=== PATIENT | male | born 1990 ===

== ENCOUNTER 2024-11-28 20:30 | Emergency (ER) | payer OTHER, SELFPAY ==
--- OUTSIDE RECORDS SUMMARY | 2024-11-28 20:33 | XMS_ITS | Encounter Summary ---
Author Organization [facility] Address [address] [place] [address] Care Team Providers Care Stonemason Name Role Phone Joleen Hernandez M.D. Primary Care Provider [phone] [phone] Reason for Visit * Reason Comments Med Refill Encounter Details Date Type Department Care Team (Late st Contact Info) Description 10/11/2024 Refill Department of Family Medicine, [facility], in [place], [place] [address] [address] Joleen Hernandez M.D. [address] [address] Med Refill Social History Tobacco Use Types Packs/Day Years Used Date Smoking Tobacco: Former Cigarettes 0 0 06/11/2014 - 06/11/2014 Passive Smoke Exposure: Current Smokeless Tobacco: Never Alcohol Use Standard Drinks/Week Comments No 0 (1 standard drink = 0.6 oz pur e alcohol) [facility] Utilities Answer Date Recorded In the past 12 months has e [employer], gas, oil, or water company threatened to shut off services in your home? No 10/29/2023 Humiliation, Afraid, Rape, and Kick questionnair e Answer Date Recorded Within the last year, have y ou been afraid of your partner or ex-partner? No 04/12/2021 Within the last year, have y ou been humiliated or emotionally abused in other ways by your partner or ex-partner? No Within the last year, have y ou been kicked, hit, slapped, or otherwise physically hurt by your partner or ex-partner? No 04/12/2021 Within the last year, have y ou been raped or forced to have any kind of sexual activity by your partner or ex-partner? No 04/12/2021 Hunger Vital Sign Answer Date Recorded Within the past 12 months, y ou worried that your food would run out before you got the money to buy more. Never true 10/29/19 Within the past 12 months, t he food you bought just didn't last and you didn't have money to get more. Never true 10/29/2023 PRAPARE - Transportation Answer Date Re corded In the past 12 months, has l ack of transportation kept you from medical appointments or from getting medications? No 10/10 In the past 12 months, has l ack of transportation kept you from meetings, work, or from getting things needed for daily living? No 10/29/2023 Depression Answer Date Recor ded PHQ-9 Total Score (max 27) 0 08/14 Housing Stability Answer Date Recorded What is your living situation today? [facility] 10/29/2023 Education Answer Date Recorded What is the highest level of school you have completed or the highest degree you have received? GED or equivalent Sex and Gender Information Value Date Recorded Sex Assigned at Male 12/03/2019 4:13 PM CDT Legal Sex Male 2:31 PM HORTICULTURAL SPECIALTY GROWER INSIDE Gender Identity Male 12/03/2019 4:13 PM CDT Sexual Orientation Straight 12/03/2019 4: 13 PM CDT documented as of this encounter Plan of Treatment Not on file documented as of this encounter Visit Diagnoses Diagnosis Radiculopathy Lumbar Pain Low Back Mechanical documented in this encounter Additional Health Concerns Assessment Noted Time PHQ-9 Depression Total Score: 0 08/15/19 5:02 PM HORTICULTURAL SPECIALTY GROWER INSIDE documented as of this encounter Care Teams Stonemason Relationship Specialty Start Date End Date Joleen Hernandez M.D. [address] [place] [phone] PCP - General Family Medicine 10/05/17 documented as of this encounter
--- OUTSIDE RECORDS SUMMARY | 2024-11-28 20:33 | XMS_ITS | Encounter Summary ---
Author Organization [facility] Address [address] [place] [address] Care Team Providers Care Bicycle Technician Name Role Phone Joleen Hernandez M.D. Primary Care Provider [phone] Reason for Visit * Reason Onset Date Comments PandaDoc Form 10/29/2024 Medical Opinion Encounter Details Date Type Department Care Team (Late st Contact Info) Description 10/29/2024 Clinical Communication Department of Family Medicine, [facility], in [place], [place] [address] [place] [phone] Joleen Hernandez M.D. [address], [place] [address] PandaDoc Form (Medical Opinion ) Social History Tobacco Use Types Packs/Day Years Used Date Smoking Tobacco: Former Cigarettes 0 0 06/11/2014 - 06/11/2014 Passive Smoke Exposure: Current Smokeless Tobacco: Never Alcohol Use Standard Drinks/Week Comments No 0 (1 standard drink = 0.6 oz pur e alcohol) [facility] Utilities Answer Date Recorded In the past 12 months has e [employer], gas, oil, or water [employer] threatened to shut off services in your [...] your living situation today? I have a [facility] place to live 10/29/2023 Education Answer Date Recorded What is the highest level of school you have completed or the highest degree you have received? GED or equivalent Sex and Gender Information Value Date Recorded Sex Assigned at Male 12/03/2019 4:13 PM CDT Legal Sex Male 2:31 PM MILL LABORER Gender Identity Male 12/03/2019 4:13 PM CDT Sexual Orientation Straight 12/03/2019 4: 13 PM CDT documented as of this encounter Miscellaneous Notes * Telephone Encounter - Terra Camara - 10/31/2024 7:[address] Hernandez states patient needs appointment. Form routed back to patient. * Telephone Encounter - Charlene Kaur - 10/29/2024 2:25 PM CDT Medical Opinion form received by [facility] Forms Team on 10/29/2024 from [facility]. Please allow 7-10 business days for form completion documented in this encounter Plan of Treatment Not on file documented as of this encounter Visit Diagnoses Not on filedocumented in this encounter Additional Health Concerns Assessment Noted Time PHQ-9 Depression Total Score: 0 08/15/19 24 5:02 PM MILL LABORER documented as of this encounter Care Teams Bicycle Technician Relationship Specialty Start Date End Date Joleen Hernandez M.D. [address] [place] [address] PCP - General Family Medicine 10/05/17 documented as of this encounter
--- OUTSIDE RECORDS SUMMARY | 2024-11-28 20:33 | XMS_ITS | Clinical Summary ---
Author Organization [facility] Address [address] [place] [address] Care Team Providers Care Unarmed Security Guard Name Role Phone Joleen Hernandez M.D. Primary Care Provider [phone] [phone] Source Comments Patient records contain information from all sites at [facility]. For routine questions regarding patient records, call [phone] during business hours, M-F 8:00 AM - 5:00 PM Central Time. Record requests for emergency care only can be directed to [phone] at any time.[facility] Allergies No known active allergies Medications * This document contains information received from the source organization and may not represent a complete record from that organization. fluticasone propionate (FLOVENT HFA) 44 mcg/actuation inhalerIndicati ons:Asthma Moderate Persistent With Acute Exacerbation With History Of Tobacco Use (HCC),Gastroeso phageal Reflux Disease Without Esophagitis Inhale 2 puffs 2 (two) times a day. Rinse mouth with water after use to reduce aftertaste and incidence of candidiasis. Do not swallow. 10.6 g 11 023 Active naproxen (EC-NAPROSYN) 500 mg EC tabletIndicatio ns:Radiculopath y Lumbar,Pain Low Back Mechanical Take 1 tablet (500 mg total) by mouth 2 (two) times a day with meals. 60 tablet 1 024 Active QUEtiapine (SEROquel) 200 mg tabletIndicatio ns:Anxiety Generalized Disorder Take 1 tablet (200 mg total) by mouth 2 (two) times a day. 60 tablet 2 024 Active atorvastatin (LIPITOR) 20 mg tablet Take 1 tablet (20 mg total) by mouth daily. 90 tablet 3 024 Active losartan (Cozaar) 50 mg tabletIndicatio ns:Hypertension Essential Primary take one tablet by mouth one time daily 90 tablet 3 024 Active albuterol (Ventolin HFA) 90 mcg/actuation inhalerIndicati ons:Asthma Moderate Persistent With Acute Exacerbation With History Of Tobacco Use (HCC),Gastroeso phageal Reflux Disease Without Esophagitis Inhale 2 puffs every 4 (four) hours as needed for wheezing or shortness of breath. 18 g 2 024 Active buprenorphine-n aloxone (Suboxone) 8-[address] mg [address] film Place 0.5 Film (4 mg of buprenorphine total) under the tongue 3 (three) times a day. Please schedule appointment. 90 each 025 Active gabapentin (Neurontin) 800 mg tabletIndicatio ns:Radiculopath y Lumbar,Pain Low Back Mechanical Take 1.5 tablets (1,200 mg total) by mouth 3 (three) times a day. Needs in-person clinic visit as recommended in July tablet 1 025 Active pantoprazole (Protonix) 40 mg EC tabletIndicatio ns:Gastroesopha geal Reflux Disease Without Esophagitis TAKE ONE TABLET BY MOUTH TWICE DAILY BEFORE BREAKFAST and dinner. 90 tablet 3 025 Active cyclobenzaprine (FLEXERIL) 10 mg tablet Take 1 tablet (10 mg total) by mouth 3 (three) times a day as needed for muscle spasms for up to 5 days. 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 Med Refill 10/29/2024 Clinical Communication Department of [facility], [place], [facility], [address] [address] Joleen Hernandez M.D. PandaDo Form (Medical Opinion ) 10/11/2024 Refill Department of [facility], [place], [facility], [place], [place] [address] [place] [phone] Joleen Hernandez M.D. Med Refill 10/01/2024 1:14 PM CDT - 10/01/2024 11:59 PM CDT Emergency [facility] [address] [place] [phone] Discharge Disposition: Home or Self Care from Last 3 Months Immunizations Immunization Administration Dates Next Due DTP 07/14/1993, 2,04/24/1991,1990,1988 Hib (PRP-T) (ACTHIB, HIBERIX) 04/24/1991 MMR 12/19/1990 OPV 07/14/1993, 1,12/19/1990,1988 Td (Adult), adsorbed 11/11/2011 Tdap 11/20/2022,10/06/2014 influenza vaccine quad (FLUZONE/FLUARIX) (6 months and older)(PF) 04/25/2018,07/17/2017 Family History Medical History Relation Name Comments ADD Father Oneal Hyperlipidemia Father Oneal Hypertension Father Oneal Anxiety disorder Mother gabrielle Bipolar disorder Mother gabrielle Depression Mother gabrielle Lung cancer Mother gabrielle Pancreatic cancer Mother gabrielle Relation Name Status Comments Father Oneal Mother gabrielle Social History Tobacco Use Types Packs/Day Years Used Date Smoking Tobacco: Former Cigarettes 0 0 06/11/2014 - 06/11/2014 Passive Smoke Exposure: Current Smokeless Tobacco: Never Tobacco Cessation:Counseling Given: Not Answered Alcohol Use Standard Drinks/Week Comments No 0 (1 standard drink = 0.6 oz pur e alcohol) [facility] [employer] Gamesities Answer Date Recorded In the past 12 months has e [employer], gas, oil, or water [employer] threatened to shut off services in your [...] money to buy more. Never true 10/29/19 24 Within the past 12 months, t he [...] your living situation today? I have a [facility] place to live 10/29/2023 Education Answer Date Recorded What is the highest level of school you have completed or the highest degree you have received? GED or equivalent Sex and Gender Information Value Date Recorded Sex Assigned at Male 12/03/2019 4:13 PM CDT Legal Sex Male 2:31 PM NETWORK CABLER Gender Identity Male 12/03/2019 4:13 PM CDT Sexual Orientation Straight 12/03/2019 4: 13 PM CDT Last Filed Vital Signs Vital Sign Reading Time Taken Comments Blood Pressure 152/91 11/19/2023 2:46 PM CDT Pulse 79 11/19/2023 2:46 PM CDT Temperature 36.2 C (97.2 F) 09/21/2023 10:47 AM CDT Respiratory Rate 20 08/23/2023 7:30 PM CDT Oxygen Saturation 96% 08/23/2023 7:35 PM CDT Inhaled Oxygen Concentration - - Weight 94.3 kg (207 lb 14.3 oz) 11/19/2023 2:46 PM CDT Height 178.5 cm (5' 10.28) 07/26/2022 2:[address] Body Mass Index 29.6 07/26/2022 2:00 PM NETWORK CABLER Plan of Treatment Health Maintenance Due Date Last Done Comments HIV Screening 1988 Hepatitis C Screening 1988 Hepatitis B Vaccines (1 of 3 - 19+ 3-dose series) 2007 Pneumococcal vaccine (0-49 years) (1 of 2 - PCV) 2007 Asthma Action Plan 09/21/2023 COVID-19 Vaccine ( - 2023- season) 2024 Influenza Vaccine (#1) 2024 04/25/2018, 2017 Depression Screening (Annual PHQ-2) 06/11/2024 Creatinine Level (Kidney Function Test) 10/21/2024 10/22/2023, 10/07/2022, 09/25/2021, Additional history exists Glucose Test for Med Monitoring 10/21/2024 10/22/2023, 10/07/2022, 09/25/2021, Additional history exists Lipid (Cholesterol) Screening 10/21/2024 10/22/2023 Potassium Level 10/21/2024 10/22/2023, 09/10, 09/25/2021, Additional history exists Sodium Level 10/21/2024 10/22/2023, 09/10, 09/25/2021, Additional history exists Asthma Control Test Questionnaire 10/28/2024 10/29/2023 Asthma Management/Exacerbation Questionnaire (AMQ/AEQ) 10/28/2024 10/29/2023, 12/25/2022 DTaP,Tdap,and Td Vaccines (8 - Td or Tdap) 11/20/2032 11/20/2022, 10/06/2014, 11/11/2011, Additional history exists IPV Vaccines Completed 07/14/1993, 04/11, 12/19/1990, Additional history exists HPV Vaccines Aged Out No longer eligi ble based on patient's age to complete this topic Procedures Procedure Name Priority Date/Time Associated Diagnosis Comments LIPID PANEL, S Routine 10/22/2023 9:50 AM CDT Screening Lipid COMPREHENSIVE METABOLIC PANEL, S/P Routine 10/22/2023 9:50 AM CDT Pain Right Upper Quadrant from Last 3 Months or Most Recently Relevant to Health Maintenance Results * (ABNORMAL) Lipid Panel (10/22/2023 9:50 AM CDT) Pathologist [facility] Triglycerides 217(H) mg/dL 10/22/2023 1:54 PM CDT [facility] Comment: ----REFERENCE VALUE---- Normal: <150 mg/dL Borderline High: 150-199 mg/dL High: 200-499 mg/dL Very High: > or =500 mg/dL Cholesterol, Total 323(H) mg/dL 2023 1:54 PM CDT [facility] Comment: ----REFERENCE VALUE---- Desirable: < 200 mg/dL Borderline High: 200 - 239 mg/dL High: > or = 240 mg/dL Cholesterol, LDL, Calculated 251(H) mg/dL 10/22/2023 1:54 PM CDT [facility] Comment: The markedly elevated LDL level is suggestive of a genetic condition such as familial hypercholesterolemia (FH) or familial defective apolipoprotein B-100 (FDB). Molecular genetic testing for FH and FDB is available through [facility]. ----REFERENCE VALUE---- Desirable: <100 mg/dL Above Desirable: 100-129 mg/dL Borderline High: 130-159 mg/dL High: 160-189 mg/dL Very High: >=190 mg/dL ----ADDITIONAL INFORMATION---- LDL cholesterol calculated using the Obrien/NIH equation. Cholesterol, HDL 27(L) >=40 mg/dL 10/22/19 1:54 PM CDT [facility] Cholesterol, Non-HDL, Calculated 296(H) mg/dL 10/22/2023 1:54 PM CDT [facility] Comment: ----REFERENCE VALUE---- Desirable: <130 mg/dL Above Desirable: 130-159 mg/dL Borderline High: 160-189 mg/dL High: 190-219 mg/dL Very High: > or =220 mg/dL Fasting (8 HR or more) Yes 10/22/2023 1:16 PM CDT [facility] Blood (Blood, Venous) 10/22/2023 9:50 AM CDT 10/22/2023 1:16 PM CDT us Joleen Hernandez M.D. LAB BLOOD ADD-ON Final Re sult [facility] [address] [place] [address], [facility] in [place] [address] [place] [address] * (ABNORMAL) Comprehensive Metabolic Panel (10/22/2023 9:50 AM CDT) Potassium, P 4.5 3.6 - 5.2 mmol/L 10/22/2023 1:54 PM CDT [facility] Sodium, P 141 135 - 145 mmol/L 10/22/2023 1:54 PM CDT [facility] Chloride, P 102 98 - 107 mmol/L 10/22/2023 1:54 PM CDT [facility] Bicarbonate, P 31(H) 22 - 29 mmol/L 10/22/2023 1:54 PM CDT [facility] Anion Gap, P 8 7 - 15 10/22/2023 1:54 PM CDT [facility] BUN (Blood Urea Nitrogen), P 12 8 - 24 mg/dL 10/22/2023 1:54 PM CDT [facility] Creatinine 1.48(H) 0.74 - 1.35 mg/dL 10/22/2023 1:54 PM CDT [facility] Estimated GFR (eGFR) 63 >=60 mL/min/BS A 10/22/2023 1:54 PM CDT [facility] Comment: Estimated GFR calculated using the 2020 CKD_EPI creatinine equation. Calcium, Total, P 9.4 8.6 - 10.0 mg/dL 10/22/2023 1:54 PM CDT [facility] Glucose, P 87 70 - 140 mg/dL 10/22/2023 1:54 PM CDT [facility] Protein, Total, P 7.6 6.3 - 7.9 g/dL 10/22/2023 1:54 PM CDT [facility] Albumin, P 4.7 3.5 - 5.0 g/dL 10/22/2023 1:54 PM CDT [facility] Aspartate Aminotransferase (AST), P 23 8 - 48 U/L 10/22/2023 1:54 PM CDT [facility] Alkaline Phosphatase, P 49 40 - 129 U/L 10/22/2023 1:54 PM CDT [facility] Alanine Aminotransferase (ALT), P 33 7 - 55 U/L 10/22/2023 1:54 PM CDT [facility] Bilirubin, Total, P 0.5 0.0 - 1.2 mg/dL 10/22/2023 1:54 PM CDT [facility] Blood (Blood, Venous) 10/22/2023 9:50 AM CDT 10/22/2023 1:16 PM CDT us Joleen Hernandez M.D. LAB BLOOD ADD-ON Final Re sult [facility] [address] [place] [address], [place] [facility] in [place] [address] [place] [address] from Last 3 Months or Most Recently Relevant to Health Maintenance Care Teams Unarmed Security Guard Relationship Specialty Start Date End Date Joleen Hernandez M.D. [address] [place] [phone] PCP - General Family Medicine 10/05/17
--- OUTSIDE RECORDS SUMMARY | 2024-11-28 20:33 | XMS_ITS | Encounter Summary ---
Author Organization [facility] Address [address] [place] [address] Care Team Providers Care Garnett Machine Operator Helper Name Role Phone Joleen Hernandez M.D. Primary Care Provider [phone] [phone] Reason for Visit * Reason Comments Med Refill Encounter Details Date Type Department Care Team (Late st Contact Info) Description 11/07/2024 Refill Department of Family Medicine, [facility], in [place], [place] [address] [phone] Joleen Hernandez M.D. [address] [place] [phone] Med Refill Social History Tobacco Use Types Packs/Day Years Used Date Smoking Tobacco: Former Cigarettes 0 0 06/11/2014 - 06/11/2014 Passive Smoke Exposure: Current Smokeless Tobacco: Never Alcohol Use Standard Drinks/Week Comments No 0 (1 standard drink = 0.6 oz pur e alcohol) [facility] Utilities Answer Date Recorded In the past 12 months has e [employer], gas, oil, or water company threatened to [...] your living situation today? I have a [facility] place to live 10/29/2023 Education Answer Date Recorded What is the highest level of school you have completed or the highest degree you have received? GED or equivalent Sex and Gender Information Value Date Recorded Sex Assigned at Male 12/03/2019 4:13 PM CDT Legal Sex Male 2:31 PM HOGSHEAD INSPECTOR Gender Identity Male 12/03/2019 4:13 PM CDT Sexual Orientation Straight 12/03/2019 4: 13 PM CDT documented as of this encounter Plan of Treatment Not on file documented as of this encounter Visit Diagnoses Diagnosis Gastroesophageal Reflux Disease Without Esophagitis documented in this encounter Additional Health Concerns Assessment Noted Time PHQ-9 Depression Total Score: 0 08/15/19 5:02 PM HOGSHEAD INSPECTOR documented as of this encounter Care Teams Garnett Machine Operator Helper Relationship Specialty Start Date End Date Joleen Hernandez M.D. [address] [place] [phone] PCP - General Family Medicine 10/05/17 documented as of this encounter
[2024-11-28 21:01] VITALS: BP 147/82; PULSE 96; RESP 18; TEMP 37.4; O2SAT 96; BMI 28.0
[2024-11-28 21:41] LABS: PCR FLU A Negative PCR FLU A (Negative); PCR FLU B Negative PCR FLU B (Negative); SARS PCR* Negative SARS-CoV-2 (Negative)
--- NOTE | 2024-11-28 21:42 | ED.GENADULT ---
HPI - General Adult General Chief complaint: Shortness of Breath/Dyspnea Stated complaint: Shortness of breath, nausea Time Seen by Provider: 11/28/24 21:11 History of Present Illness HPI narrative: pt resents with cough, sinus congestion, and chest congestion since sunday. family is not sick. pt denies fevers, no ibu /tyl. did take mucinex. states he has hx of pnx multiple times. 34-year-old man presenting to emergency depart with concern of shortness of breath and cough. Some sinus congestion without pain. 4 days of illness now. Sounds like he gets jags of coughing. Feels a rattle in his chest against off. Does not had a fever that he knows of. He has treated with Mucinex. Related Data Home Medications ?Medication ?Instructions ?Recorded ?Confirmed albuterol sulfate 90 mcg/actuation inhalation 09/05/23 09/05/23 aerosol inhaler (Ventolin HFA) famotidine 40 mg tablet 40 mg PO BID 09/05/23 11/28/24 fluticasone propionate 44 2 puff inhalation BID 09/05/23 09/05/23 mcg/actuation HFA aerosol inhaler gabapentin 800 mg tablet 3,600 mg PO 09/05/23 09/05/23 quetiapine 100 mg tablet 100 mg PO QPM 09/05/23 11/28/24 buprenorphine 8 mg-naloxone 2 mg 1 film sublingual DAILY 11/28/24 11/28/24 sublingual film Allergies Allergy/AdvReac Type Severity Reaction Status Date / Time No Known Drug Allergies Allergy Verified 11/28/24 21:03 Review of Systems Status of ROS: Reports: 6 or more systems reviewed and unremarkable except as noted in History and below [facility] Social History Smoking Status: Never smoker Second hand tobacco smoke exposure: No How often do you have a drink containing alcohol: never AUDIT-C Alcohol total score: 0 Non-prescribed substance use: denies use Exam Narrative: Exam Narrative: Pleasant. NAD but looks like feels a little uncomfortable. Heavily bearded. Tattoos. Wiping his brow times. Oropharynx is unremarkable. The lungs with some inspiratory rhonchi I thought in the left mid lung. Cleared with further inspiratory efforts. Cough with deeper effort. Heart with elevated rate and regular rhythm. Well-perfused peripherally. Does sound a little congested nasopharynx but without pain Const: Vital Signs, click to edit/add: Vital Signs - 24 hr 11/28/24 21:01 11/28/24 23:01 11/28/24 23:01 Temperature 99.4 F 99.4 F 99.4 F Pulse Rate [Pulse Oximeter] 96 85 85 Respiratory Rate 18 18 18 Blood Pressure [Ri ght Upper Arm] 147/82 H 135/74 135/74 Pulse Oximetry 96 96 Oxygen Delivery Me thod Room Air Room Air Documenting provider has reviewed patient's vital signs: yes Course Vital Signs Vital signs: Initial Vital Signs Respiratory Effort Normal, Spontaneous, Non-Labored 11/28/24 20:55 Respiratory Depth Normal 11/28/24 20:55 Respiratory Pattern Normal 11/28/24 20:55 Vital Signs Temperature 99.4 F 11/28/24 21:01 Pulse Rate 96 11/28/24 21:01 Respiratory Rate 18 11/28/24 21:01 Blood Pressure 147/82 H 11/28/24 21:01 Pulse Oximetry 96 11/28/24 21:01 Oxygen Delivery Method Room Air 11/28/24 21:01 Temperature 99.4 F 11/28/24 23:01 Pulse Rate 85 11/28/24 23:01 Respiratory Rate 18 11/28/24 23:01 Blood Pressure 135/74 11/28/24 23:01 Pulse Oximetry 96 11/28/24 23:01 Oxygen Delivery Method Room Air 11/28/24 23:01 Medical Decision Making MDM Narrative Medical decision making narrative: Triple swab has been collected upon triage in negative by the time I am seeing this patient. This could be cough somewhat related to postnasal drip, bronchitis some degree of pleuritis, pneumonia. Will be doing two-view chest x-ray and treating accordingly Chest x-ray independently reviewed by me looks to show perihilar fullness suggestive more of a viral process. Managed to sleep during time in emergency department. I do think has a combination of postnasal drip related cough or maybe even laryngospasm in addition to pleuritic cough Radiology over-read below Final Report: Indication: Cough, ongoing one-week Technique: Two views of the chest Comparison: None Findings/Impression: No organized consolidation appreciated. Mild prominence of central vascular and peripheral interstitial markings, nonspecific but could be seen with atypical/viral pneumonia or high volume status. Dictated by Jorgito Bonilla MD @ 11/28/2024 11:02:01 PM See patient discharge plan for further discussion I will call you if Radiology sees something other in your chest x-ray that requires treatment. Would however recommend sleeping in the mist of a cool mist humidifier. Menthol vapors might be helpful. Sucking on ice chips can help. Pseudoephedrine might be helpful for your cough due to drying and decongestion and then decreasing postnasal drip related cough. I like the 12 hour formulation. Can purchase this [id number] with id. Prescribing course of prednisone as discussed from [facility]. Otherwise guaifenesin with codeine if needed. Medical Records Medical records reviewed: Yes I reviewed the patient's medical records Lab Data Lab results reviewed: Yes I reviewed the patient's lab results Labs: Lab Results 11/28/24 Range/Units 21:00 SARS-CoV-2 (PCR) Negative SARS-CoV-2 (Negative) Influenza Type A (PCR) Negative PCR FLU A (Negative) Influenza Type B (PCR) Negative PCR FLU B (Negative) Discharge Plan Discharge Clinical Impression: Bronchitis, URI (upper respiratory infection) Patient Disposition: Home w/ Parent or Adult Condition: Improved Additional Instructions: I will call you if Radiology sees something other in your chest x-ray that requires treatment. Would however recommend sleeping in the mist of a cool mist humidifier. Menthol vapors might be helpful. Sucking on ice chips can help. Pseudoephedrine might be helpful for your cough due to drying and decongestion and then decreasing postnasal drip related cough. I like the 12 hour formulation. Can purchase this [id number] with id. Prescribing course of prednisone as discussed from [facility]. Otherwise guaifenesin with codeine if needed. Prescriptions: No Action gabapentin 800 mg tablet 3,600 mg PO quetiapine 100 mg tablet 100 mg PO QPM famotidine 40 mg tablet 40 mg PO BID albuterol sulfate [Ventolin HFA] 90 mcg/actuation HFA aerosol inhaler inhalation fluticasone propionate 44 mcg/actuation HFA aerosol inhaler 2 puff inhalation BID buprenorphine-naloxone 8-2 mg film 1 film sublingual DAILY Follow Up/Referrals: Provider,Not a Local [Primary Care Provider, Family Practice] Stand Alone Forms: [employer] Info Instructions
--- NOTE | 2024-11-28 21:49 | CRLHL7_ITS ---
For Patients: As a result of the Century Cures Act, medical imaging exams and procedure reports are released immediately into your electronic medical record. You may view this report before your referring provider. If you have questions, please contact your health care provider. Indication: Cough, ongoing one-week Technique: Two views of the chest Comparison: None Findings/Impression: No organized consolidation appreciated. Mild prominence of central vascular and peripheral interstitial markings, nonspecific but could be seen with atypical/viral pneumonia or high volume status. Dictated by Jorgito Bonilla MD @ 11/28/2024 11:02:01 PM (Electronically Signed)
--- OUTSIDE RECORDS SUMMARY | 2024-11-28 22:05 | XMS_ITS | Clinical Summary ---
Author Organization [facility] Address [address] [place] [address] Care Team Providers Care Package Reinspector Name Role Phone Joleen Hernandez MD Primary Care Prov ider Allergies No known active allergies Medications gabapentin (NEURONTIN) 400 mg capsule Take 800 mg by mouth 3 times daily. Active DULoxetine (CYMBALTA) 60 mg Delayed-release capsuleIndications: chronic musculoskeletal pain Take 60 mg by mouth once daily. Indications: chronic muscle or bone pain Active tiZANidine (ZANAFLEX) 4 mg tabletIndications:A cute exacerbation of chronic low back pain Take 1 tablet by mouth every 6 hours if needed for Muscle Spasm. 15 tablet 11/19/19 20 Active oxyCODONE-acetamino phen, 5-325 mg, (PERCOCET) 5-325 mg per tabletIndications:I njury of back, initial encounter,Foot injury, left, initial encounter,Foot injury, right, initial encounter Take 1 tablet by mouth every 4 hours if needed for Pain Max acetaminophen dose: 4000mg in 24 hrs. 15 tablet 01/12/20 20 Active dextroamphetamine-a mphetamine (ADDERALL) 20 mg tablet Take 20 mg by mouth 2 times daily 01/31/20 20 Active oxyCODONE (ROXICODONE) 5 mg immediate release tabletIndications:B ack pain, unspecified back location, unspecified back pain laterality, unspecified chronicity Take 1 tablet by mouth every 6 hours if needed for Pain 10 tablet 05/31/20 20 Active methocarbamoL (ROBAXIN) 500 mg tabletIndications:B ack pain, unspecified back location, unspecified back pain laterality, unspecified chronicity Take 1 tablet by mouth every 6 hours if needed for Other (Specify). 12 tablet 05/31/20 20 Active naproxen (NAPROSYN) 500 mg tabletIndications:A cute exacerbation of chronic low back pain Take 1 Tablet (500 mg) by mouth 2 times daily. 30 Tablet 01/18/20 21 Active oxyCODONE (ROXICODONE) 5 mg immediate release tabletIndications:A cute exacerbation of chronic low back pain Take 1 Tablet (5 mg) by mouth every 4 hours if needed for Pain. 4 Tablet 01/18/20 21 Active buprenorphine-nalox one (Suboxone) 8-2 mg sublingual filmIndications:Opi oid withdrawal (HC),Back pain, unspecified back location, unspecified back pain laterality, unspecified chronicity Place 1 Film under the tongue once daily. Place film under the tongue until completely dissolved. Do not chew or swallow film. 30 Each 10/02/19 25 Active ondansetron 4 mg disintegrating tabletIndications:O pioid withdrawal (HC) Place 1 Tablet (4 mg) on the tongue every 6 hours if needed for Nausea/Vomiting. 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 Personal history of nicotine dependence 07/20/19 16 Encounters Date Type Department Care Team Description 10/01/2024 3:24 PM CDT - 10/01/2024 3:58 PM CDT Emergency [address] [address] Lilly Loya MD Opioid withdrawal (HC) (Primary Dx); Back pain, unspecified back location, unspecified back pain laterality, unspecified chronicity Discharge Disposition: Home Self Care 10/01/2024 Travel from Last 3 Months Immunizations Immunization Administration Dates Next Due DTP 07/14/1993, 2,04/24/1991,12/19/1990,08/25 HIB PRP-T (ActHIB,[employer]) 04/24/1991 Influenza, IIV4 04/25/2018,07/17/2017 MMR 12/19/1990 Oral Polio Vaccine 07/14/1993,04/24/1991, 991,1988 Td (Age >=7 Years) 11/11/2011 Tdap 10/06/2014 Family History Medical History Relation Name Comments GI Disease Mother Chronic GERD. Relation Name Status Comments Mother Alive Social History Tobacco Use Types Packs/Day Years Used Date Smoking Tobacco: Former Smokeless Tobacco: Never Tobacco Cessation:Counseling Given: Yes Comments:Patient quit smoking in 08/2012. Alcohol Use Standard Drinks/Week Comments No 0 (1 standard drink = 0.6 oz pur e alcohol) Interpersonal Safety Answer Date Record ed Are you being hit, kicked, p ushed or yelled at (see row info)? 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 Gender Identity Not on file Sexual Orientation Not on file Obstetrics History Last Filed Vital Signs Vital Sign Reading Time Taken Comments Blood Pressure 129/92 10/01/2024 1:31 PM CDT Pulse 115 10/01/2024 1:31 PM CDT Temperature 36.8 C (98.2 F) 10/01/2024 1:31 PM CDT Respiratory Rate 19 10/01/2024 1:31 PM CDT Oxygen Saturation 98% 10/01/2024 1:31 PM CDT Inhaled Oxygen Concentration - - Weight 87.7 kg (193 lb 6.4 oz) 10/01/2024 1:25 P M CDT Height 177.8 cm (5' 10) 10/01/2024 1:25 PM CDT Body Mass Index 27.75 10/01/2024 1:25 PM CDT Plan of Treatment Health Maintenance Due Date Last Done Comments Depression screening for age 12+ 2000 BMI (ht and wt on same day) for age 18+ 2006 Hepatitis C screening for ag e 18-79 2006 Hepatitis B series for 19+ ( 1 of 3 - 19+ 3-dose series) 2007 Lipids for age 35-44 2023 COVID-19 vaccine series (2023- season) 2024 Tetanus booster 10/06/2024 10/06/2014, 11/11/2011 Influenza Vaccine (Season Ended) 2025 04/25/2018, 07/17/2017 Tdap Completed 10/06/2014 HIV for age 15-65 Completed 12/09/2018 Pneumococcal series for age 6-49 Aged Out No longer eligible b ased on patient's age to complete this topic Procedures Procedure Name Priority Date/Time Associated Diagnosis Comments ANTI HIV 1/2 STAT 12/09/2018 10:55 PM CDT from Last 3 Months or Most Recently Relevant to Health Maintenance Results * ANTI HIV 1/2 (12/09/2018 10:55 PM CDT) HIV-1/HIV-2 ANTIBODY Non-Reacti ve Non-Reacti ve 12/11/2018 4:52 AM CDT [facility] Comment:HIV-1 p24 and HIV-1/ HIV-2 Ab not detected. Blood BLOOD SPECIMEN / Unknown Venipuncture / Unknown 12/09/2018 10:55 PM CDT 12/09/2018 10:57 PM CDT us Reji Castillo MD SEND OUTS Final Res ult [facility] [address] [place] [address], [place] from Last 3 Months or Most Recently Relevant to Health Maintenance Care Teams Package Reinspector Relationship Specialty Start Date End Date Joleen Hernandez MD [address] [place] [address] PCP - General Family Practice 10/06/17
[2024-11-28 23:01] VITALS: BP 135/74; PULSE 85; RESP 18; TEMP 37.4; O2SAT 96
== END 2024-11-28 23:02 | disposition home or self-care (01) ==
PROVIDERS: Emergency Provider Family Medicine
DX: J40 Bronchitis, not specified as acute or chronic (principal); J06.9 Acute upper respiratory infection, unspecified; R06.02 Shortness of breath; R05.9 Cough, unspecified
CPT/HCPCS: 71046; 87631; 99283; 99284

== ENCOUNTER 2024-12-04 03:36 | Emergency (ER) | payer OTHER, SELFPAY ==
--- OUTSIDE RECORDS SUMMARY | 2024-12-04 03:39 | XMS_ITS | Encounter Summary ---
Author Organization [facility] Address [address] [place] [address] Care Team Providers Care Professional Soccer Player Name Role Phone Joleen Hernandez M.D. Primary Care Provider [phone] Reason for Visit * Reason Onset Date Comments PandaDoc Form 10/29/2024 Medical Opinion Encounter Details Date Type Department Care Team (Late st Contact Info) Description 10/29/2024 Clinical Communication Department of Family Medicine, [facility], in [place], [place] [address] [place] [phone] Joleen Hernandez M.D. [address] [address] PandaDoc Form (Medical Opinion ) Social History Tobacco Use Types Packs/Day Years Used Date Smoking Tobacco: Former Cigarettes 0 0 06/11/2014 - 06/11/2014 Passive Smoke Exposure: Current Smokeless Tobacco: Never Alcohol Use Standard Drinks/Week Comments No 0 (1 standard drink = 0.6 oz pur e alcohol) [facility] Utilities Answer Date Recorded In the past 12 months has e [employer], gas, oil, or water [employer] threatened to shut off services in your [...] your living situation today? I have a [facility] place to live 10/29/2023 Education Answer Date Recorded What is the highest level of school you have completed or the highest degree you have received? GED or equivalent Sex and Gender Information Value Date Recorded Sex Assigned at Male 12/03/2019 4:13 PM CDT Legal Sex Male 2:31 PM CABANA ATTENDANT Gender Identity Male 12/03/2019 4:13 PM CDT Sexual Orientation Straight 12/03/2019 4: 13 PM CDT documented as of this encounter Miscellaneous Notes * Telephone Encounter - Terra Camara - 10/31/2024 7:[address] Hernandez states patient needs appointment. Form routed back to patient. * Telephone Encounter - Charlene Kaur - 10/29/2024 2:25 PM CDT Medical Opinion form received by [facility] Forms Team on 10/29/2024 from [facility]. Please allow 7-10 business days for form completion documented in this encounter Plan of Treatment Not on file documented as of this encounter Visit Diagnoses Not on filedocumented in this encounter Additional Health Concerns Assessment Noted Time PHQ-9 Depression Total Score: 0 08/15/19 24 5:02 PM CABANA ATTENDANT documented as of this encounter Care Teams Professional Soccer Player Relationship Specialty Start Date End Date Joleen Hernandez M.D. [address] [place] [address] PCP - General Family Medicine 10/05/17 documented as of this encounter
--- OUTSIDE RECORDS SUMMARY | 2024-12-04 03:39 | XMS_ITS | Encounter Summary ---
Author Organization [facility] Address [address] [place] [address] Care Team Providers Care Panel Cutter Name Role Phone Joleen Hernandez M.D. Primary Care Provider [phone] Reason for Visit * Reason Comments Med Refill Encounter Details Date Type Department Care Team (Late st Contact Info) Description 11/07/2024 Refill Department of Family Medicine, [facility], in [place], [place] [address] [address] Joleen Hernandez M.D. [address] [phone] Med Refill Social History Tobacco Use Types Packs/Day Years Used Date Smoking Tobacco: Former Cigarettes 0 0 06/11/2014 - 06/11/2014 Passive Smoke Exposure: Current Smokeless Tobacco: Never Alcohol Use Standard Drinks/Week Comments No 0 (1 standard drink = 0.6 oz pur e alcohol) [facility] Utilities Answer Date Recorded In the past 12 months has e [employer], gas, oil, or water company threatened to [...] your living situation today? I have a [facility] place to live 10/29/2023 Education Answer Date Recorded What is the highest level of school you have completed or the highest degree you have received? GED or equivalent Sex and Gender Information Value Date Recorded Sex Assigned at Male 12/03/2019 4:13 PM CDT Legal Sex Male 2:31 PM BUSINESS ATTORNEY Gender Identity Male 12/03/2019 4:13 PM CDT Sexual Orientation Straight 12/03/2019 4: 13 PM CDT documented as of this encounter Plan of Treatment Not on file documented as of this encounter Visit Diagnoses Diagnosis Gastroesophageal Reflux Disease Without Esophagitis documented in this encounter Additional Health Concerns Assessment Noted Time PHQ-9 Depression Total Score: 0 08/15/19 5:02 PM BUSINESS ATTORNEY documented as of this encounter Care Teams Panel Cutter Relationship Specialty Start Date End Date Joleen Hernandez M.D. [address] [place] [phone] PCP - General Family Medicine 10/05/17 documented as of this encounter
--- OUTSIDE RECORDS SUMMARY | 2024-12-04 03:39 | XMS_ITS | Clinical Summary ---
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 Blood BLOOD SPECIMEN / Unknown Venipuncture / Unknown 12/09/2018 10:55 PM CDT 12/09/2018 10:57 PM CDT us Reji Castillo MD SEND OUTS Final Res ult [facility] [address] [place] [address], [place] from Last 3 Months or Most Recently Relevant to Health Maintenance Care Teams Senior Financial Consultant Relationship Specialty Start Date End Date Joleen Hernandez MD [address] [place] [address] PCP - General Family Practice 10/06/17
--- OUTSIDE RECORDS SUMMARY | 2024-12-04 03:39 | XMS_ITS | Clinical Summary ---
Author Organization [facility] Address [address] [place] [address] Care Team Providers Care Manager Training And Development Name Role Phone Joleen Hernandez M.D. Primary Care Provider [phone] [phone] Source Comments Patient records contain information from all sites at [facility]. For routine questions regarding patient records, call [phone] during business hours, M-F 8:00 AM - 5:00 PM Central Time. Record requests for emergency care only can be directed to [phone] at any time.[facility] Allergies No known active allergies Medications * [...] Care Team Description 11/07/2024 Refill Department of [facility], [facility], [address] [address] Joleen Hernandez M.D. Med Refill 10/29/2024 Clinical Communication Department of [facility], [facility], [address] [address] Joleen Hernandez M.D. PandaDo Form (Medical Opinion ) 10/11/2024 Refill Department of [facility], [facility], [place], [place] [address] [place] [phone] Joleen Hernandez M.D. Med Refill 10/01/2024 1:14 PM CDT - 10/01/2024 11:59 PM CDT Emergency [facility] [address] [place] [phone] Discharge Disposition: Home or Self Care from [...] drink = 0.6 oz pur e alcohol) [facility] [employer] Answer Date Recorded In the past 12 months has e [employer], gas, oil, or water [employer] threatened to shut off services in your [...] your living situation today? I have a [facility] place to live 10/29/2023 Education Answer Date Recorded What is the highest level of school you have completed or the highest degree you have received? GED or equivalent Sex and Gender Information Value Date Recorded Sex Assigned at Male 12/03/2019 4:13 PM CDT Legal Sex Male 2:31 PM PHARMACY SALES REPRESENTATIVE Gender Identity Male 12/03/2019 4:13 PM CDT [...] Body Mass Index 29.6 07/26/2022 2:00 PM PHARMACY SALES REPRESENTATIVE Plan of Treatment Health Maintenance Due Date [...] for FH and FDB is available through [facility]. ----REFERENCE VALUE---- Desirable: <100 mg/dL Above [...] M.D. LAB BLOOD ADD-ON Final Re sult [facility] [address] [place] [address], [facility] [place] [address] [place] [address] * (ABNORMAL) Comprehensive Metabolic Panel (10/22/2023 9:50 [...] M.D. LAB BLOOD ADD-ON Final Re sult [facility] [address] [place] [address], [place] [facility] [place] [address] [place] [address] from Last 3 Months or Most Recently Relevant to Health Maintenance Care Teams Manager Training And Development Relationship Specialty Start Date End Date Joleen Hernandez M.D. [address] [place] [phone] PCP - General Family Medicine 10/05/17
[2024-12-04 03:42] VITALS: BP 168/97; PULSE 86; RESP 18; TEMP 37.2; O2SAT 97; BMI 28.7
[2024-12-04] MEDS: OXYCODONE 5 MG TABLET 10 MG PO (04:20)
--- NOTE | 2024-12-04 04:38 | ED.EYEPROB ---
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 No foreign body in the eye. He was able to go home in shower but the flash burn to his eyes cap causing more and more pain he comes in in the middle of the night because of this. He is brought in by his . He reports that his vision was intact. There is no foreign body sensation. He has very light sensitive and the pain is worse when he attempts to open the eye. Related Data Home Medications ?Medication ?Instructions ?Recorded ?Confirmed albuterol sulfate 90 mcg/actuation inhalation 09/05/23 09/05/23 aerosol inhaler (Ventolin HFA) famotidine 40 mg tablet 40 mg PO BID 09/05/23 11/28/24 fluticasone propionate 44 2 puff inhalation BID 09/05/23 09/05/23 mcg/actuation HFA aerosol inhaler gabapentin 800 mg tablet 3,600 mg PO 09/05/23 09/05/23 quetiapine 100 mg tablet 100 mg PO QPM 09/05/23 11/28/24 buprenorphine 8 mg-naloxone 2 mg 1 film sublingual DAILY 11/28/24 11/28/24 sublingual film Allergies Allergy/AdvReac Type Severity Reaction Status Date / Time No Known Drug Allergies Allergy Verified 11/28/24 21:03 Review of Systems Narrative: Review of systems is outlined above otherwise noted to be negative. PFSH PFS Social History Smoking Status: Never smoker Second hand tobacco smoke exposure: No How often do you have a drink containing alcohol: never AUDIT-C Alcohol total score: 0 Non-prescribed substance use: denies use Exam Narrative: Exam Narrative: Objective: Vitals noted. No external injury to the eye. Initially he is unable to open the eyes because of pain. After we were able to get a couple of tetracaine drops in I could better examine the eye. There is generalized redness. No sign of foreign body. No trauma to the eye. His vision is preserved. Const: Vital Signs, click to edit/add: Vital Signs - 24 hr 12/04/24 03:42 Temperature 99 F Pulse Rate [Pulse Oximeter] 86 Respiratory Rate 18 Blood Pressure [Ri ght Upper Arm] 168/97 H Pulse Oximetry 97 Oxygen Delivery Me thod Room Air Course Course ED Course: Patient is seen and examined. It took a fair bit of effort to get any drops into his eyes. He struggled with the right eye for quite some time but eventually we were able to get the pain under control. He was also given two tablets oxycodone 5 mg with good pain relief. His vision is preserved. He is ready for discharge. Vital Signs Vital signs: Initial Vital Signs Temperature 99 F 12/04/24 03:42 Temperature Source Temporal Artery Scan 12/04/24 03:42 Pulse Rate 86 12/04/24 03:42 Respiratory Rate 18 12/04/24 03:42 Blood Pressure 168/97 H 12/04/24 03:42 Blood Pressure Mean 120 H 12/04/24 03:42 Blood Pressure Position Sitting 12/04/24 03:42 Pulse Oximetry 97 12/04/24 03:42 Oxygen Delivery Method Room Air 12/04/24 03:42 Vital Signs Temperature 99 F 12/04/24 03:42 Pulse Rate 86 12/04/24 03:42 Respiratory Rate 18 12/04/24 03:42 Blood Pressure 168/97 H 12/04/24 03:42 Pulse Oximetry 97 12/04/24 03:42 Oxygen Delivery Method Room Air 12/04/24 03:42 Temperature 99 F 12/04/24 03:42 Pulse Rate 86 12/04/24 03:42 Respiratory Rate 18 12/04/24 03:42 Blood Pressure 168/97 H 12/04/24 03:42 Pulse Oximetry 97 12/04/24 03:42 Oxygen Delivery Method Room Air 12/04/24 03:42 Medications Administered Medications: Discontinued Medications Generic Name Dose Route Start Last Admin Trade Name Freq PRN Reason Stop Dose Admin Oxycodone HCl 10 mg 12/04/24 04:15 12/04/24 04:20 Oxycodone 5 Mg Tablet PO 12/04/24 04:16 10 mg ONCE ONE Administration Discharge Plan 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 Tetracaine 1 drop each eye every 2 hours for the first 24 hours. Tylenol or Ibuprofen for pain. Percocet 1-2 every 4-6 hours as needed for refractory pain. Follow up with an eye doctor if no better in the next 24-48 hours. Prescriptions: No Action gabapentin 800 mg tablet 3,600 mg PO quetiapine 100 mg tablet 100 mg PO QPM famotidine 40 mg tablet 40 mg PO BID albuterol sulfate [Ventolin HFA] 90 mcg/actuation HFA aerosol inhaler inhalation fluticasone propionate 44 mcg/actuation HFA aerosol inhaler 2 puff inhalation BID buprenorphine-naloxone 8-2 mg film 1 film sublingual DAILY Follow Up/Referrals: Provider,Not a Local [Non-Staff, Family Practice] Stand Alone Forms: Referlyealth Info Instructions
== END 2024-12-04 04:43 | disposition home or self-care (01) ==
PROVIDERS: Emergency Provider Family Medicine
DX: H16.133 Photokeratitis, bilateral (principal); W89.0XXA Exposure to welding light (arc), initial encounter
CPT/HCPCS: 99282; 99283; A9270

== ENCOUNTER 2025-03-09 17:42 | Emergency (ER) | payer MEDICAID, SELFPAY ==
--- OUTSIDE RECORDS SUMMARY | 2025-03-03 16:00 | XMS_ITS | Encounter Summary ---
Author Organization [facility] Address [address] [place] [address] Care Team Providers Care Rn Document Improvement Specialist Name Role Phone Joleen Hernandez M.D. Primary Care Provider [phone] Reason for Visit * Reason Comments Medication Visit * Appointment Request (Routine) - Closed Specialty Diagnoses / Procedures Referred By Keira olivas Referred To Contact Family Medicine Referral ID Status Reason Start Date Expiration Date Visits Re quested Visits Authorized [id number] Closed 09/30/2024 12/31/2025 1 1 Encounter Details Date Type Department Care Team (Late st Contact Info) Description 03/03/2025 4:00 PM CDT Office Visit Department of Internal Medicine in [place], [place] [address] [place] [phone] Radha Ackerman, CHRISTIANO, C.N.P. [address] [place] [address] Medication Management Issue (Primary Dx) Social History Tobacco Use Types Packs/Day Years Used Date Smoking Tobacco: Former Cigarettes 0 0 06/11/2014 - 06/11/2014 Passive Smoke Exposure: Current Smokeless Tobacco: Never Tobacco Cessation:Counseling Given: No Alcohol Use Standard Drinks/Week Comments No 0 (1 standard drink = 0.6 oz pur e alcohol) [facility] Utilities Answer Date Recorded In the past 12 months has [employer], gas, oil, or water company threatened to [...] PM CDT Legal Sex Male 2:31 PM [employer] Gender Identity Male 12/03/2019 4:13 PM CDT Sexual Orientation Straight 12/03/2019 4: 13 PM CDT documented as of this encounter Last Filed Vital Signs Vital Sign Reading Time Taken Comments Blood Pressure 153/93 03/03/2025 3:54 PM CDT rec heck Pulse 101 03/03/2025 3:51 PM CDT Temperature 36.7 C (98.1 F) 03/03/2025 3:51 PM CDT Respiratory Rate - - Oxygen Saturation - - Inhaled Oxygen Concentration - - Weight 95 kg (209 lb 7 oz) 03/03/2025 3:51 PM CD T Height - - Body Mass Index 29.82 07/26/2022 2:00 PM [employer] documented in this encounter Progress Notes * Radha Ackerman APRN, C.N.P. - 03/03/2025 4:00 PM CDT DATE OF VISIT: 03/03/2025 SUBJECTIVE CHIEF COMPLAINT / REASON FOR VISIT Diego Martin is a 34 y.o. male who presents for evaluation of Medication Visit. The patient verbally consented to an audio recording of their visit to assist with the completion of documentation. History of Present Illness Diego Martin is a 34 year old male who presents with concerns about Suboxone withdrawal symptoms. He reports a history of experiencing significant withdrawal symptoms from Suboxone, which was prescribed as a non-addictive alternative to pain medications. If he does not take Suboxone by 10 or 11 AM, he begins to sweat and feels unwell. He describes experiencing withdrawal symptoms that make it di fficult for him to function without the medication. He is currently prescribed 4 mg of Suboxone up to three times a day, but he rarely takes the full amount. He has four films left, which he obtained from the pharmacy, but he is concerned they will not last long. He emphasizes the necessity of the medication for his ability to work and function daily. Patient states if he is unable to get in for an appointment with someone who can prescribe the medication, he will go to the ER for the medication. He experiences difficulty sleeping, restless legs, and a sensation angela to 'growing pains' in his bones, which he attributes to withdrawal. He is frustrated that he was not informed about the potential for withdrawal symptoms and is worried about the severity of these symptoms, which he has read can be worse than opioid withdrawal. He finds it difficult to get appointments with his current provider, leading to scheduling issues. He was initially scheduled to see another doctor on March 10, but the appointment was rescheduled to today. Patient was informed this provider does not prescribe Suboxone and he will need to schedule with Jana Bennett APRN, as per primary provider. Able to obtain appointment for this coming Sunday which he will attend. OBJECTIVE VITAL SIGNS BP (!) 153/93 Comment: recheck Pulse 101 Temp 36.7 ??C (Temporal) Wt 95 kg BMI 29.82 kg/m?? Physical Exam Physical Exam General Appearance: Well-appearing, in no acute distress. Head: Normocephalic, atraumatic. Eyes: Conjunctivae and sclerae normal. Sclerae nonicteric. Extraocular movements intact. No exudates or hemorrhages. Neck: Supple Heart: Regular rate and rhythm. Skin: No rash, warm and dry. Neurologic: Alert and oriented. No focal neuro deficit. ASSESSMENT/ PLAN Medication Management Issue Reports concern for withdrawal symptoms including diaphoresis, insomnia, restless legs, and severe discomfort. Unaware of withdrawal potential, leading to anxiety about symptom severity and impact onfunction. - PDMP reviewed - Informed patient I do not prescribe Suboxone. He is not currently out of the medication and does have enough to get to his upcoming appointment on Sunday. - Discuss refill or alternative management with prescribing physician. - Educated on withdrawal potential and symptom management strategies. - Explore same-day appointment options for acute withdrawal concerns. Able to obtain appointment with provider this coming Sunday. Patient will follow up as scheduled. Electronically signed by: Radha Ackerman APRN, C.N.P. 03/08/25 5:58 PM CDT documented in this encounter Miscellaneous Notes * Assessment & Plan Note - Radha Ackerman APRN, C.N.P. - 03/03/2025 4:00 PM CDTAssociated Problem(s): Medication Management Issue Reports concern for withdrawal symptoms including diaphoresis, insomnia, restless legs, and severe discomfort. Unaware of withdrawal potential, leading to anxiety about symptom severity and impact onfunction. - PDMP reviewed - Informed patient I do not prescribe Suboxone. He is not currently out of the medication and does have enough to get to his upcoming appointment on Sunday. - Discuss refill or alternative management with prescribing physician. - Educated on withdrawal potential and symptom management strategies. - Explore same-day appointment options for acute withdrawal concerns. Able to obtain appointment with provider this coming Sunday. Patient will follow up as scheduled. Electronically signed by: Radha Ackerman APRN, C.N.P. 03/08/25 5:58 PM CDT documented in this encounter Plan of Treatment Upcoming Encounters Date Type Department Care Team (Late st Contact Info) Description 03/16/2025 4:00 PM CDT Appointment Department of Radiology in [place], [place] [address] [phone] Jana Bennett APRN, C.N.P., D.N.P. [address] [phone] Discharge Disposition: Home or Self Care 03/30/2025 3:30 PM CDT Appointment Department of Radiology in [place], [place] [address] [phone] Jana Bennett APRN C.N.P., D.N.P. [address] [phone] Discharge Disposition: Home or Self Care 09/04/2025 2:40 PM CDT Office Visit Department of Family Medicine, [facility], in [place], [place] [address] [phone] Joleen Hernandez M.D. [address] [phone] documented as of this encounter Visit Diagnoses Diagnosis Medication Management Issue- Primary documented in this encounter Additional Health Concerns Assessment Noted Time PHQ-9 Depression Total Score: 0 08/15/19 24 5:02 PM [employer]NA[employer] documented as of this encounter Care Teams Rn Document Improvement Specialist Relationship Specialty Start Date End Date Joleen Hernandez M.D. [address] [place] [phone] PCP - General Family Medicine 10/05/17 documented as of this encounter
--- OUTSIDE RECORDS SUMMARY | 2025-03-06 11:00 | XMS_ITS | Encounter Summary ---
Author Organization [facility] Address [address] [place] [address] Care Team Providers Care Finisher Operator Name Role Phone Joleen Hernandez M.D. Primary Care Provider [phone] Reason for Referral * Outpatient (Routine) - Authorized Specialty Diagnoses / Procedures Referred By Contac t Referred To Contact Family Medicine Diagnoses Pain Shoulder Left Pain Shoulder Right Pain Teeth Radiculopathy Lumbar Jana Bennett APRN, C.N.P., D.N.P. [address] [place] [phone] Phone: tel: fax: Joleen Hernandez M.D. [address] [place] [phone] Phone: tel: fax: Referral ID Status Reason Start Date Expiration Date V isits Requested Visits Authorized [id number] Authorized 03/06/2025 09/05/2026 1 1 * MRI/CAT/PET Scan (Routine) - Authorized Specialty Diagnoses / Procedures Referred By Contac t Referred To Contact Radiology Diagnoses Pain Low Back Unspecified Radiculopathy Lumbar Procedures MR Lumbar Spine without IV Contrast Jana Bennett APRN, C.N.P., D.N.P. [address] [place] [address] Phone: tel: fax: [facility] Region Referral ID Status Reason Start Date Expiration Date V isits Requested Visits Authorized [id number] Authorized 03/06/2025 06/06/2026 1 1 * MRI/CAT/PET Scan (Routine) - Authorized Specialty Diagnoses / Procedures Referred By Contac t Referred To Contact Radiology Diagnoses Pain Teeth Procedures CT Maxillofacial with IV Contrast GA CT MAXFAC W CNTRST Jana Bennett APRN, C.N.P., D.N.P. [address], [place] [address] Phone: tel: fax: [facility] Region Referral ID Status Reason Start Date Expiration Date V isits Requested Visits Authorized [id number] Authorized 03/06/2025 06/06/2026 1 1 * MRI/CAT/PET Scan (Routine) - Authorized Specialty Diagnoses / Procedures Referred By Prudenceac t Referred To Contact Radiology Diagnoses Pain Teeth Procedures CT Sinuses with IV Contrast Jana Bennett APRN, C.N.P., D.N.P. [address] [place] [address] Phone: tel: fax: [facility] Region Referral ID Status Reason Start Date Expiration Date V isits Requested Visits Authorized [id number] Authorized 03/06/2025 06/06/2026 1 1 * Outpatient (Routine) - Authorized Specialty Diagnoses / Procedures Referred By Keira olivas Referred To Contact Physical Therapy Diagnoses Pain Low Back Unspecified Pain Shoulder Left Pain Shoulder Right Jana Bennett APRN, C.N.PSowmya, D.N.P. [address] [address] Phone: tel: fax: Referral ID Status Reason Start Date Expiration Date V isits Requested Visits Authorized [id number] Authorized 03/06/2025 09/05/2026 10 10 Reason for Visit * Reason Comments Back Pain Suboxone refill * Outpatient (Routine) - Closed Specialty Diagnoses / Procedures Referred By Keira olivas Referred To Contact Family Medicine Joleen Hernandez M.D. [address], [place] [address] Phone: tel: fax: [facility] Region Referral ID Status Reason Start Date Expiration Date Visits Re quested Visits Authorized [id number] Closed 02/12/2024 08/13/2025 1 1 Encounter Details Date Type Department Care Team (Late st Contact Info) Description 03/06/2025 11:00 AM CDT Office Visit Department of Family Medicine, [facility], in [place], [place] [address] [place] [phone] Jana Bennett APRN, C.N.PSowmya, D.N.P. [address] [place] [phone] Pain Low Back Unspecified (Primary Dx); Radiculopathy Lumbar; Pain Shoulder Left; Pain Shoulder Right; Hypertension Essential Primary; Asthma Moderate Persistent With Acute Exacerbation With History Of Tobacco Use (HCC); Pain Teeth; Cerumen Impacted Bilateral; Sleep Apnea Unspecified Social History Tobacco Use Types Packs/Day Years Used Date Smoking Tobacco: Former Cigarettes 0 0 06/11/2014 - 06/11/2014 Passive Smoke Exposure: Past Smokeless Tobacco: Never Tobacco Cessation:Counseling Given: Not Answered Alcohol Use Standard Drinks/Week Comments No 0 (1 standard drink = 0.6 oz pur e alcohol) [facility] Utilities Answer Date Recorded In the past 12 months has e electric, gas, oil, or water company threatened to [...] your living situation today? I have a [facility] place to live 10/29/2023 Education Answer Date Recorded What is the highest level of school you have completed or the highest degree you have received? GED or equivalent Sex and Gender Information Value Date Recorded Sex Assigned at Male 12/03/2019 4:13 PM CDT Legal Sex Male 2:31 PM [employer] SERVICE [employer]RARIAN Gender Identity Male 12/03/2019 4:13 PM CDT Sexual Orientation Straight 12/03/2019 4: 13 PM CDT documented as of this encounter Last Filed Vital Signs Vital Sign Reading Time Taken Comments Blood Pressure 130/75 03/06/2025 11:02 AM CDT Pulse 76 03/06/2025 11:02 AM CDT Temperature 36.8 C (98.2 F) 03/06/2025 10:56 AM CDT Respiratory Rate - - Oxygen Saturation - - Inhaled Oxygen Concentration - - Weight 94.7 kg (208 lb 12.4 oz) 03/06/2025 10:56 AM CDT wearing steel toes work boots Height 180 cm (5' 10.87) 03/06/2025 10 :56 AM CDT wearing steel toes work boots Body Mass Index 29.23 03/06/2025 10:56 AM CDT documented in this encounter Progress Notes * Jana Bennett, CHRISTIANO, C.N.P., D.N.P. - 03/06/2025 11:00 AM CDT DATE OF VISIT: 03/06/2025 SUBJECTIVE CHIEF COMPLAINT / REASON FOR VISIT Diego Martin is a 34 y.o. male who presents for evaluation for multiple concerns. The patient verbally consented to an audio recording of their visit to assist with the completion of documentation. History of Present Illness Diego Martin is a 34 year old male with degenerative disc disease and chronic back pain whopresents for medication refills and evaluation of his back pain. He reports severe, constant back pain and has been diagnosed with degenerative disc disease, herniated discs, a bulging disc, and lumbarized vertebrae. 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 Despite taking Suboxone, which provides more relief than previous pain medications, he still experiences significant pain after work and during activities with his daughter, impacting his quality of life. He has consulted spine specialists and was advised against surgery due to the complexity of his condition and the potential need for repeated surgeries. He has tried various treatments including physical therapy, home care manager, and acupuncture, but these have not provided lasting relief. He experiences frequent back spasms, stiffness, and lack of flexibility. He has bilateral shoulder pain, with a known torn labrum in the left shoulder and suspected similarissues in the right. 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 He is interested in physical therapy to address these issues. He has a history of sleep apnea and reports a deviated septum from a past nasal injury. He experiences significant snoring and wakes up due to breathing difficulties. He has a recent onset of severe tooth pain, suspecting an infection, with associated facial pain and clear nasal drainage. He grinds his teeth at night, which may exacerbate the issue. He has not seen a dentist for this problem yet. He vapes and has expressed a possible interest in quitting. He also uses Valium occasionally, prescribed by his psychiatrist, and uses marijuana. OBJECTIVE VITAL SIGNS BP 130/75 (BP Location: Right arm, Patient Position: Sitting, Cuff Size: Large) Pulse 76 Temp 36.8 ??C (Temporal) Ht 180 cm Comment: wearing steel toes work boots Wt 94.7 kg Comment: wearing steel toes work boots BMI 29.23 kg/m?? Physical Exam General: Well-developed, well-nourished 34 y.o. male in no acute distress. Patient is cooperative during our visit today. Neck: Nontender. No nodes, thyromegaly, or lymphadenopathy. HEENT: Head is normocephalic. Conjunctivae and sclerae clear without injection. Pupils equal and reactive bilaterally. EOM's intact. Canals impacted bilaterally with cerumen. Nares patent with normalmucosa. Oropharynx moist without exudate or erythema. Evaluating the tooth that is causing him painthere is no inflammation of the gumline, I do not appreciate any abscess or abnormalities at this time. Respiratory: Clear to auscultation bilaterally throughout all lung gaytan. Respirations are easy and unlabored. Cardiovascular: Regular rate and rhythm. No murmurs, gallops or rubs heard. Abdomen: Normal bowel sounds. Soft, non-tender to palpation. No hepatosplenomegaly. No masses noted. Musculoskeletal: Normal range of motion in all extremities. 5/5 strength in bilateral upper and lower extremities. He has generalized lower lumbar pain with palpation. There is pain with straight legraises bilaterally. Neuro: Alert and oriented x3, responds appropriately to questions and follows commands without difficulty. Bilateral patellar DTRs 2+.Sensation intact to light touch in all extremities. Extremities: No cyanosis, clubbing or edema. Dorsalis pedis and posterior tibialis 2+ bilaterally. Skin: Warm, pink and dry. No rashes or lesions. Psych: Appropriate mood and affect. Dressed appropriately. Contributes to meaningful conversation. Speech was spontaneous, clear, coherent, with normal rate, rhythm, volume, and tone. ASSESSMENT/ PLAN Pain Low Back Unspecified Chronic severe lower back pain due to degenerative disc disease, herniated and bulging discs. Previous consultations with spine specialists and surgeons have not resulted in a clear treatment plan. Interested in exploring surgical options despite previous advice against disc replacements. Significant impact on quality of life. - Order MRI of the spine to assess current status of discs and any nerve impingement. - Refer to resume specialist for evaluation and management of back pain. - [facility].Order placed at today's visit. - For pain management he has been doing Suboxone - needs to update controlled substance monitoring panel at today's visit for refills. Orders: External [facility]illary [facility] MR Lumbar Spine without IV Contrast; Future Radiculopathy Lumbar Chronic severe lower back pain due to degenerative disc disease, herniated and bulging discs. Previous consultations with spine specialists and surgeons have not resulted in a clear treatment plan. Interested in exploring surgical options despite previous advice against disc replacements. Significant impact on quality of life. - Order MRI of the spine to assess current status of discs and any nerve impingement. - Refer to resume specialist for evaluation and management of back pain. - [facility].Order placed at today's visit. - For pain management he has been doing Suboxone - needs to update controlled substance monitoring panel at today's visit for refills. Orders: MR Lumbar Spine without IV Contrast; Future Family Medicine office visit (clinic); Future Pain Shoulder Left Chronic bilateral shoulder pain with known labrum tear in the left shoulder and suspected tear in the right. Arthritis in the left shoulder likely due to occupational strain. Pain impacts daily activities and quality of life. - [facility]. Orders: External referral ancillary ([facility]) Family Medicine office visit (clinic); Future Pain Shoulder Right Chronic bilateral shoulder pain with known labrum tear in the left shoulder and suspected tear in the right. Arthritis in the left shoulder likely due to occupational strain. Pain impacts daily activities and quality of life. - [facility] Orders: External referral ancillary (non[facility]) Family Medicine office visit (clinic); Future Hypertension Essential Primary Blood pressure is under good control at today's visit. Refilled his losartan 50 mg daily. Ordered CMP at today's visit. Orders: losartan (Cozaar) 50 mg tablet; Take 1 tablet (50 mg total) by mouth daily. Comprehensive Metabolic Panel; Future Asthma Moderate Persistent With Acute Exacerbation With History Of Tobacco Use (HCC) Doing well with no concerns at this time. Refilled his Flovent inhaler to do 2 puffs twice a day. Orders: fluticasone propionate (Flovent HFA) 44 mcg/actuation inhaler; Inhale 2 puffs 2 (two) times a day. Rinse mouth with water after use to reduce aftertaste and incidence of candidiasis. Do not swallow. Pain Teeth Acute tooth pain. Grinding teeth at night may exacerbate the condition. No fevers at this time. Exam is unremarkable. - Order CT scan of the sinuses to evaluate for infection and sinus involvement. - Advise him to see a dentist for evaluation and management. - CBC ordered. - Reviewed signs and symptoms that would warrant sooner evaluation in ED. Orders: CT Sinuses with IV Contrast; Future CT Maxillofacial with IV Contrast; Future CBC with Differential, Blood; Future Family Medicine office visit (clinic); Future Cerumen Impacted Bilateral Removed successfully at today's visit. TMs appear normal. Sleep Apnea Unspecified Severe sleep apnea with symptoms of snoring, daytime fatigue, and waking due to breathing difficulties. Likely contributing factors include anatomical issues and possible deviated septum from previous nasal trauma. - Refer to ENT specialist for evaluation of deviated septum and potential contribution to sleep apnea. - Consider sleep study to assess severity of sleep apnea and determine appropriate treatment options. Patient had multiple concerns at today's visit. Discussed the importance of follow up in 6 months with PCP for management of these issues. Happy to see him sooner with any questions or concerns. I personally spent 49 minutes today in both skyt-fn-peby care and in chart review. The patient verbalized understanding and agreement of the plan of care. All questions were answeredtoday. The patient will contact the clinic with any questions, concerns or changes in condition. Aware of emergency department if they develop any worrisome symptoms or have any immediate medical concerns. AVS was provided to the patient. Jana Bennett APRN, C.N.P., MiriamNSowmyaP. documented in this encounter Procedure Notes * Carmina Reid R.N. - 03/06/2025 11:00 AM CDTAssociated Order(s): FAM Ear wax removal procedure Pre-Procedure Diagnose(s): Cerumen Impacted Bilateral Post-Procedure Diagnose(s): Cerumen Impacted Bilateral FAM Ear wax removal procedure Performed by: Carmina Reid R.N. Authorized by: Jana Bennett APRN, C.N.P., MiriamN.P. Care team members present 1. Carmina Reid R.N. PROCEDURE DETAILS Location: left ear and right ear Procedure type: irrigation Scope used: otoscope Performed by: nurse/allied health Was patient seen by MD/DAMIAN who ordered service to be performed?: yes CONSENT Consent obtained: verbal Consent given by: patient The benefits, risks and alternatives to the procedure and the potential need for sedation or anesthesia as well as the names, roles, and responsibilities of healthcare team members performing significant interventional tasks were discussed with the patient and/or decision maker. UN[employer]ERSAL [employer]OTOCOL All relevant documentation and testing were reviewed and available. All required blood products, implants, devices and or special equipment were made available as applicable. Pre-procedure verification was conducted and the correct site was marked if required. A fire risk and smoke assessment were done as applicable. The procedural time-out to verify correct patient, correct side/site, and procedure was conducted prior to performing the procedure and confirmed in a procedural pause. PRE-PROCEDURE DETAILS Indication: cerumen impaction POST-PROCEDURE DETAILS Inspection: complete impaction removal Hearing quality: improved Procedure completed successfully: yes Complications: no immediate complications documented in this encounter Miscellaneous Notes * Assessment & Plan Note - Jana Bennett APRN, C.N.P., D.N.P. - 03/06/2025 11:00 AM CDTAssociated Problem(s): Asthma Moderate Persistent With Acute Exacerbation With History Of Tobacco Use (HCC) Doing well with no concerns at this time. Refilled his Flovent inhaler to do 2 puffs twice a day. Orders: fluticasone propionate (Flovent HFA) 44 mcg/actuation inhaler; Inhale 2 puffs 2 (two) times a day. Rinse mouth with water after use to reduce aftertaste and incidence of candidiasis. Do not swallow. * Assessment & Plan Note - Jana Bennett APRN, C.N.P., D.N.P. - 03/06/2025 11:00 AM CDTAssociated Problem(s): Pain Low Back Unspecified Chronic severe lower back pain due to degenerative disc disease, herniated and bulging discs. Previous consultations with spine specialists and surgeons have not resulted in a clear treatment plan. Interested in exploring surgical options despite previous advice against disc replacements. Significant impact on quality of life. - Order MRI of the spine to assess current status of discs and any nerve impingement. - Refer to resume specialist for evaluation and management of back pain. - Initiate physical therapy referral [facility] for [facility] and shoulder rehabilitation.Order placed at today's visit. - For pain management he has been doing Suboxone - needs to update controlled substance monitoring panel at today's visit for refills. Orders: External referral ancillary (non-[place]) MR Lumbar Spine without IV Contrast; Future * Assessment & Plan Note - Jana Bennett APRN C.N.P., D.N.P. - 03/06/2025 11:00 AM CDTAssociated Problem(s): Radiculopathy Lumbar Chronic severe lower back pain due to degenerative disc disease, herniated and bulging discs. Previous consultations with spine specialists and surgeons have not resulted in a clear treatment plan. Interested in exploring surgical options despite previous advice against disc replacements. Significant impact on quality of life. - Order MRI of the spine to assess current status of discs and any nerve impingement. - Refer to resume specialist for evaluation and management of back pain. - [facility].Order placed at today's visit. - For pain management he has been doing Suboxone - needs to update controlled substance monitoring panel at today's visit for refills. Orders: MR Lumbar Spine without IV Contrast; Future Family Medicine office visit (clinic); Future documented in this encounter Plan of Treatment Upcoming Encounters Date Type Department Care Team (Late st Contact Info) Description 03/16/2025 4:00 PM CDT Appointment Department of Radiology in [place], [place] [address] [phone] Jana Bennett APRN, C.N.P., D.N.P. [address] [place] [phone] Discharge Disposition: Home or Self Care 03/30/2025 3:30 PM CDT Appointment Department of Radiology in [place], [place] [address] [place] [phone] Jana Bennett APRN, C.N.P., D.N.P. [address], [place] [address] Discharge Disposition: Home or Self Care 09/04/2025 2:40 PM CDT Office Visit Department of Family Medicine, [facility], in [place], [place] [address] [place] [address] Joleen Hernandez M.D. [address] [place] [address] Scheduled Orders Name Type Priority Associated Diagnoses Order Schedule CT Sinuses with IV Contrast Imaging RAD - Routine (most inpatients and all outpatients) Pain Teeth Expected: 03/06/2025, Expires: 06/05/2026 CT Maxillofacial with IV Contrast Imaging RAD - Routine (most inpatients and all outpatients) Pain Teeth Expected: 03/06/2025, Expires: 06/05/2026 MR Lumbar Spine without IV Contrast Imaging RAD - Routine (most inpatients and all outpatients) Pain Low Back Unspecified Radiculopathy Lumbar Expected: 03/06/2025, Expires: 06/05/2026 Scheduled Referrals Name Type Priority Associated Diagnoses Orde r Schedule Family Medicine office visit (clinic) Outpatient Referral Routine Pain Shoulder Left Pain Shoulder Right Pain Teeth Radiculopathy Lumbar Expected: 09/03/2025, Expires: 06/05/2026 documented as of this encounter Results * (ABNORMAL) CBC with Differential, Blood (03/06/2025 12:11 PM CDT) [facility] Hemoglobin 15.3 13.2 - 16.6 g/dL 03/06/2025 12:30 PM CDT [facility] Hematocrit 45.2 38.3 - 48.6 % 03/06/2025 12:30 PM CDT [facility] Erythrocytes 5.29 4.35 - 5.65 x10(12)/L 03/06/2025 12:30 PM CDT [facility] MCV 85.4 78.2 - 97.9 fL 03/06/2025 12:30 PM CDT [facility] RBC Distrib Width 13.2 11.8 - 14.5 % 03/06/2025 12:30 PM CDT [facility] Platelet Count 335(H) 135 - 317 x10(9)/L 03/06/2025 12:30 PM CDT [facility] Leukocytes 8.1 3.4 - 9.6 x10(9)/L 03/06/2025 12:30 PM CDT [facility] Neutrophils 4.26 1.56 - 6.45 x10(9)/L 03/06/2025 12:30 PM CDT [facility] Lymphocytes 2.68 0.95 - 3.07 x10(9)/L 03/06/2025 12:30 PM CDT [facility] Monocytes 0.87(H) 0.26 - 0.81 x10(9)/L 03/06/2025 12:30 PM CDT [facility] Eosinophils 0.21 0.03 - 0.48 x10(9)/L 03/06/2025 12:30 PM CDT [facility] Basophils 0.04 0.01 - 0.08 x10(9)/L 03/06/2025 12:30 PM CDT [facility] Blood (Blood, Venous) 03/06/2025 12:11 PM CDT 03/06/2025 12:21 PM CDT Jana Bennett APRN, C.N.P., D.N.P. LAB BLOO D ADD-ON Final Result [facility] [address] [place] [address], [place] [facility] [place] [address] [place] [address] * (ABNORMAL) Comprehensive Metabolic Panel (03/06/2025 12:11 PM CDT) Potassium, P 4.2 3.6 - 5.2 mmol/L 03/06/2025 12:40 PM CDT [facility] Sodium, P 138 135 - 145 mmol/L 03/06/2025 12:40 PM CDT [facility] Chloride, P 100 98 - 107 mmol/L 03/06/2025 12:40 PM CDT [facility] Bicarbonate, P 30(H) 22 - 29 mmol/L 03/06/2025 12:40 PM CDT [facility] Anion Gap, P 8 7 - 15 03/06/2025 12:40 PM CDT [facility] BUN (Blood Urea Nitrogen), P 9 8 - 24 mg/dL 03/06/2025 12:40 PM CDT [facility] Creatinine 1.15 0.74 - 1.35 mg/dL 03/06/2025 12:40 PM CDT [facility] Estimated GFR (eGFR) 85 >=60 mL/min/BS A 03/06/2025 12:40 PM CDT [facility] Comment: Estimated GFR calculated using the 2020 CKD_EPI creatinine equation. Calcium, Total, P 9.6 8.6 - 10.0 mg/dL 03/06/2025 12:40 PM CDT [facility] Glucose, P 89 70 - 140 mg/dL 03/06/2025 12:40 PM CDT [facility] Protein, Total, P 7.3 6.3 - 7.9 g/dL 03/06/2025 12:40 PM CDT [facility] Albumin, P 4.5 3.5 - 5.0 g/dL 03/06/2025 12:40 PM CDT [facility] Aspartate Aminotransferase (AST), P 19 8 - 48 U/L 03/06/2025 12:40 PM CDT [facility] Alkaline Phosphatase, P 57 40 - 129 U/L 03/06/2025 12:40 PM CDT [facility] Alanine Aminotransferase (ALT), P 26 7 - 55 U/L 03/06/2025 12:40 PM CDT [facility] Bilirubin, Total, P 0.4 0.0 - 1.2 mg/dL 03/06/2025 12:40 PM CDT [facility] Blood (Blood, Venous) 03/06/2025 12:11 PM CDT 03/06/2025 12:21 PM CDT us Jana Bennett APRN, C.N.P., D.N.P. LAB KOREYO D ADD-ON Final Result [facility] [address] [place] [address], [facility] [place] [address] [place] [address] documented in this encounter Visit Diagnoses Diagnosis Pain Low Back Unspecified- Primary Radiculopathy Lumbar Pain Shoulder Left Pain Shoulder Right Hypertension Essential Primary Asthma Moderate Persistent With Acute Exacerbation With History Of Tobacco Use (HCC) Pain Teeth Cerumen Impacted Bilateral Sleep Apnea Unspecified documented in this encounter Additional Health Concerns Assessment Noted Time PHQ-9 Depression Total Score: 0 08/15/19 24 5:02 PM [employer] 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 [address] [place] [phone] PCP - General Family Medicine 10/05/17 documented as of this encounter
--- OUTSIDE RECORDS SUMMARY | 2025-03-06 12:05 | XMS_ITS | Encounter Summary ---
Author Organization [facility] Address [address] [place] [address] Care Team Providers Care Drafter Chief Design Name Role Phone Joleen Hernandez M.D. Primary Care Provider [phone] Encounter Details Date Type Department Care Team (Latest Contact Info) Description 03/06/2025 12:05 PM CDT - 03/06/2025 11:59 PM CDT Hospital Encounter Department of Laboratory Medicine in [place], [place] [address] [place] [phone] Jana Bennett, CHRISTIANO, C.N.P., D.N.P. [address] [place] [phone] Hypertension Essential Primary; Pain Teeth Discharge Disposition: Home or Self Care Social History Tobacco Use Types Packs/Day Years Used Date Smoking Tobacco: Former Cigarettes 0 0 06/11/2014 - 06/11/2014 Passive Smoke Exposure: Past Smokeless Tobacco: Never Alcohol Use Standard Drinks/Week Comments No 0 (1 standard drink = 0.6 oz pur e alcohol) [place] Utilities Answer Date Recorded In the past [...] your living situation today? I have a [facility] place to live 10/29/2023 Education Answer Date Recorded What is the highest level of school you have completed or the highest degree you have received? 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 18 g 2 05/16/2024 atorvastatin (Lipitor) 20 mg tablet Take 1 tablet (20 mg total) by mouth daily. 90 tablet 3 03/06/2025 03/06/20 buprenorphine-nal oxone (Suboxone) 8-2 mg per SL filmIndications:P ain Low Back Unspecified Place 0.5 Film (4 mg of buprenorphine total) under the tongue 3 (three) times a day. Please schedule appointment. 15 each 01/08/2025 fluticasone propionate (Flovent HFA) 44 mcg/actuation inhalerIndication s:Asthma Moderate Persistent With Acute Exacerbation With History Of Tobacco Use (HCC) Inhale 2 puffs 2 (two) times a day. Rinse mouth with water after use to reduce aftertaste and incidence of candidiasis. Do not swallow. 10.6 g 11 03/06/2025 gabapentin (Neurontin) 800 mg tabletIndications :Radiculopathy Lumbar,Pain Low Back Mechanical Take 1.5 tablets (1,200 mg total) by mouth 3 (three) times a day. Needs in-person clinic visit as recommended in July tablet 1 10/16/2024 losartan (Cozaar) 50 mg tabletIndications :Hypertension Essential Primary Take 1 tablet (50 mg total) by mouth daily. 90 tablet 3 03/06/2025 naproxen (EC-NAPROSYN) 500 mg EC tabletIndications :Radiculopathy Lumbar,Pain Low Back Mechanical Take 1 tablet (500 mg total) by mouth 2 (two) times a day with meals. 60 tablet 1 07/04/2023 pantoprazole (Protonix) 40 mg EC tabletIndications :Gastroesophageal Reflux Disease Without Esophagitis TAKE ONE TABLET BY MOUTH TWICE DAILY BEFORE BREAKFAST and dinner. 90 tablet 3 11/12/2024 QUEtiapine XR (SEROqueL XR) 400 mg 24 hr tablet Take 1 tablet (400 mg total) by mouth at bedtime. Last refill until appointment made 60 tablet 02/13/2025 documented as of this encounter Plan of Treatment Upcoming Encounters Date Type Department Care Team (Late st Contact Info) Description 03/16/2025 4:00 PM CDT Appointment Department of Radiology in [place], [place] [address] [place] [address] Jana Bennett APRN C.N.P., D.N.P. [address] [address] Discharge Disposition: Home or Self Care 03/30/2025 3:30 PM CDT Appointment Department of Radiology in [place], [place] [address] [place] [phone] Jana Bennett APRN C.N.P., D.N.P. [address] [place] [address] Discharge Disposition: Home or Self Care 09/04/2025 2:40 PM CDT Office Visit Department of Family Medicine, [facility], in [place], [place] [address] [phone] Joleen Hernandez M.D. [address] [place] [facility] [place] [address] documented as of this encounter Procedures Procedure Name Priority Date/Time Associated Diagnosis Comments CBC WITH DIFFERENTIAL, B Routine 03/06/2025 12:11 PM CDT Pain Teeth COMPREHENSIVE METABOLIC PANEL, S/P Routine 03/06/2025 12:11 PM CDT Hypertension Essential Primary documented in this encounter Results * (ABNORMAL) CBC with Differential, Blood (03/06/2025 12:11 PM CDT) Hemoglobin 15.3 13.2 - 16.6 g/dL 03/06/2025 [...] D.N.P. LAB BLOO D ADD-ON Final Result [facility] [address] [place] [address], [facility] in [place] [address] [place] [address] * (ABNORMAL) Comprehensive Metabolic Panel (03/06/2025 12:11 [...] D.N.P. LAB BLOO D ADD-ON Final Result [facility] [address] [place] [address], [facility] in [place] [address] [place] [address] documented in this encounter Visit Diagnoses Diagnosis Hypertension Essential Primary Pain Teeth documented in this encounter Additional Health Concerns Assessment Noted Time PHQ-9 Depression Total Score: 0 08/15/19 24 5:02 PM SKATING RINK MANAGER documented as of this encounter Care Teams Drafter Chief Design Relationship Specialty Start Date End Date Joleen Hernandez M.D. [address] [place] [address] PCP - General Family Medicine 10/05/17 documented as of this encounter
--- OUTSIDE RECORDS SUMMARY | 2025-03-09 15:49 | XMS_ITS | Encounter Summary ---
Author Organization [facility] Address [address] [place] [address] Care Team Providers Care Client Renewal Specialist Name Role Phone Joleen Hernandez M.D. Primary Care Provider [phone] Encounter Details Date Type Department Care Team (Late st Contact Info) Description 03/09/2025 3:49 PM CDT Hospital Encounter Department of Laboratory Medicine in [place] [address] [place] [address] Joleen Hernandez M.D. [address] [place] [address] Pain Low Back Unspecified Social History Tobacco Use Types Packs/Day Years Used Date Smoking Tobacco: Former Cigarettes 0 0 06/11/2014 - 06/11/2014 Passive Smoke Exposure: Past Smokeless Tobacco: Never Alcohol Use Standard Drinks/Week Comments No 0 (1 standard drink = 0.6 oz pur e alcohol) [facility] Utilities Answer Date Recorded In the past [...] your living situation today? I have a [facility] place to live 10/29/2023 Education Answer Date Recorded What is the highest level of school you have completed or the highest degree you have received? 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 [address] [place] [address] Discharge Disposition: Home or Self Care 03/30/2025 3:30 PM CDT Appointment Department of Radiology in [place], [place] [address] [address] Jana Bennett APRN, C.N.P., D.N.P. [address] [address] Discharge Disposition: Home or Self Care 09/04/2025 2:40 PM CDT Office Visit Department of Family Medicine, [facility], in [place], [place] [address] [address] Joleen Hernandez M.D. [address] [phone] Scheduled Orders Name Type Priority Associated Diagnoses Orde r Schedule Controlled Substance Monitoring Panel, Urine Lab Routine Pain Low Back Unspecified Once for 1 Occurrences starting 03/09/2025 until 03/09/2025 documented as of this encounter Visit Diagnoses Diagnosis Pain Low Back Unspecified documented in this encounter Additional Health Concerns Assessment Noted Time PHQ-9 Depression Total Score: 0 08/15/19 24 5:02 PM FLORIST DESIGNER documented as of this encounter Care Teams Client Renewal Specialist Relationship Specialty Start Date End Date Joleen Hernandez M.D. [address] [address] PCP - General Family Medicine 10/05/17 documented as of this encounter
--- OUTSIDE RECORDS SUMMARY | 2025-03-09 17:44 | XMS_ITS | Clinical Summary ---
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 Gender Identity Not on file Sexual Orientation [...] 10/01/2024 1:25 PM CDT Plan of Treatment Upcoming Encounters Date Type Department Care Team (Late st Contact Info) Description 03/30/2025 3:30 PM CDT Appointment [facility] [address] [place] [address] Health Maintenance Due Date Last Done Comments Depression screening for age 12+ 2000 BMI (ht and wt on same day) for age 18+ 2006 Hepatitis C screening for ag e 18-79 2006 Hepatitis B series for 19+ ( 1 of 3 - 19+ 3-dose series) 2007 HPV series for age 9-45 (1 - 3-dose SCDM series) 2015 Lipids for age 35-44 2023 Tetanus booster 10/06/2024 10/06/2014, 11/11/2011 COVID-19 vaccine series ( season) 2025 Influenza Vaccine (#1) 2025 8, 07/17/2017 RSV vaccine for adults or (1 - 1-dose 75+ series) 2063 HIV for age 15-65 Completed 12/09/2018 Pneumococcal [...] LABORATORY [address] [place] [address], [place] from Last 3 Months or Most Recently Relevant to Health Maintenance Care Teams Attending Pathologist Relationship Specialty Start Date End Date Joleen Hernandez MD [address] [place] [address] PCP - General Family Practice 10/06/17
--- OUTSIDE RECORDS SUMMARY | 2025-03-09 17:44 | XMS_ITS | Encounter Summary ---
Author Organization [facility] Address [address] [place] [address] Care Team Providers Care Lining Feller Blindstitch Name Role Phone Joleen Hernandez M.D. Primary Care Provider [phone] Reason for Visit * Reason Onset Date Comments Med Refill 03/06/2025 Encounter Details Date Type Department Care Team (Late st Contact Info) Description 03/06/2025 Refill Department of Family Medicine, [facility], in [place], [place] [address] [place] [phone] Joleen Hernandez M.D. 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 [address], [place] [address] Discharge Disposition: Home or Self Care 03/30/2025 3:30 PM CDT Appointment Department of Radiology in [place], [place] [address], [place] [address] Jana Bennett APRN, C.N.P., D.N.P. [address], [place] [address] Discharge Disposition: Home or Self Care 09/04/2025 2:40 PM CDT Office Visit Department of Family Medicine, [facility], in [place], [place] [address] [address] Joleen Hernandez M.D. [address] [place] [address] documented as of this encounter Visit Diagnoses Diagnosis Pain Low Back Unspecified documented in this encounter Additional Health Concerns Assessment Noted Time PHQ-9 Depression Total Score: 0 08/15/19 24 5:02 PM DATA COMMUNICATIONS ENGINEER documented as of this encounter Care Teams Lining Feller Blindstitch Relationship Specialty Start Date End Date Joleen Hernandez M.D. [address] [place] [address] PCP - General Family Medicine 10/05/17 documented as of this encounter
--- OUTSIDE RECORDS SUMMARY | 2025-03-09 17:44 | XMS_ITS | Encounter Summary ---
Author Organization [facility] Address [address] [place] [address] Care Team Providers Care Bulk System Operator Name Role Phone Joleen Hernandez M.D. Primary Care Provider [phone] [phone] Reason for Referral * Outpatient (Routine) - Closed Specialty Diagnoses / Procedures Referred By Keira olivas Referred To Contact Family Medicine Diagnoses Pain Low Back Unspecified Joleen Hernandez M.D. [address] [address] Phone: tel: fax: Juan F Fisher M.D. [address] [place] [address] Phone: tel: fax: Referral ID Status Reason Start Date Expiration Date Visits Re quested Visits Authorized [id number] Closed 02/24/2025 08/26/2026 1 1 Reason for Visit * Reason Onset Date Comments Med Question 02/24/2025 Encounter Details Date Type Department Care Team (Late st Contact Info) Description 02/24/2025 Clinical Communication Department of Family Medicine, [facility], in [place], [place] [address] [place] [address] Joleen Hernandez M.D. [address] [phone] Med Question Social History Tobacco Use Types Packs/Day Years Used Date Smoking Tobacco: Former Cigarettes 0 0 06/11/2014 - 06/11/2014 Passive Smoke Exposure: Current Smokeless Tobacco: Never Alcohol Use Standard Drinks/Week Comments No 0 (1 standard drink = 0.6 oz pur e alcohol) [facility] Utilities Answer Date Recorded In the past 12 months has e [employer], gas, oil, or water [employer] threatened to shut off services in your [...] your living situation today? I have a [facility] place to live 10/29/2023 Education Answer Date Recorded What is the highest level of school you have completed or the highest degree you have received? 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 - 02/27/2025 1:40 PM CDT Information Discussed The patient has only filled 12 films(24 doses) since 01/21 so should not have withdrawal. Start withat least doing the CSA urine test at lab and that does not require waiting until appt on 03/10. Please have scheduling check to see is Dr Fisher may have an opening prior to 03/10 PLAN Disposition/Recommendation: patient transferred to the appointment desk Information/Education: patient/caller able to teach back Caller agreeable to plan of care: yes The following references were used: nursing clinical judgement * Telephone Encounter - Joleen Hernandez M.D. - 02/27/2025 12:33 PM CDT The patient has only filled 12 films(24 doses) since 01/21 so should not have withdrawal. Start withat least doing the CSA urine test at lab and that does not require waiting until appt on 03/10. Please have scheduling check to see is Dr Fisher may have an opening prior to 03/10 * Telephone Encounter - Tammie Swanson L.P.N. - 02/25/2025 8:55 AM CDT Information Discussed Called and spoke with patient and he has already scheduled an appointment with Yessica Wilkins for03/10/25. He stated that he did not have insurance last year to be seen due to unable to pay the bill that it would have created. He is concerned of going into with drawl if he does not get his medication. PLAN Disposition/Recommendation: notified provider and awaiting recommendations Information/Education: patient/caller able to teach back Caller agreeable to plan of care: yes The following references were used: nursing clinical judgement * Telephone Encounter - Joleen Hernandez M.D. - 02/24/2025 5:49 PM CDT PDMP reviewed. There has been significant gaps in care. I put in a request for an appointment back in February 2024 and the patient has not made an appointment Patient needs to be seen and also do aurine CSA before we can do any further refills. Please see when the next available time he can get in with . I will place referral. * Telephone Encounter - Tammie Swanson L.P.N. - 02/24/2025 12:28 PM CDT R: Please review pended narcotic medication and update/approve/deny as applicable. S: Request from: patient B: Buprenorphine-naloxone ( Suboxone) 8-2 mg Last dispensed from [facility] on 01/08/25 for a quantity of 15 and for a 3 day supply. Last date renewed by provider: 01/08/25 Due: now Last saw PCP on: 11/19/23 Dr. Gross Next appt with PCP: 03/10/2025 Last physical on: A: CSA Pain Contract signed: YES Recent Urine Screen: YES 11/03/22 Pharmacy for Controlled Substances: NO PDMP reviewed, no suspicious activities observed. No alerts in system (Alerts COPY AND PASTED IFNECESSARY). Thank you, Tammie Swanson L.P.N. documented in this encounter Plan of Treatment Upcoming Encounters Date Type Department Care Team (Late st Contact Info) Description 03/16/2025 4:00 PM CDT Appointment Department of Radiology in [place], [place] [address] [address] Jana Bennett APRN C.N.PSowmya, D.N.P. [address] [address] Discharge Disposition: Home or Self Care 03/30/2025 3:30 PM CDT Appointment Department of Radiology in [place], [place] [address] [address] Jana Bennett APRN, C.N.P., D.N.P. [address] [address] Discharge Disposition: Home or Self Care 09/04/2025 2:40 PM CDT Office Visit Department of Family Medicine, [facility], in [place], [place] [address] [address] Joleen Hernandez M.D. [address] [address] Scheduled Orders Name Type Priority Associated Diagnoses Orde r Schedule Controlled Substance Monitoring Panel, Urine Lab Routine Pain Low Back Unspecified Expected: 02/24/2025, Expires: 05/26/2026 Scheduled Referrals Name Type Priority Associated Diagnoses Orde r Schedule Family Medicine office visit (clinic) Outpatient Referral Routine Pain Low Back Unspecified Expected: 02/24/2025, Expires: 05/26/2026 documented as of this encounter Visit Diagnoses Diagnosis Pain Low Back Unspecified documented in this encounter Additional Health Concerns Assessment Noted Time PHQ-9 Depression Total Score: 0 08/15/19 24 5:02 PM RETAIL INTERIOR DESIGNER documented as of this encounter Care Teams Bulk System Operator Relationship Specialty Start Date End Date Joleen Hernandez M.D. [address] [place] [address] PCP - General Family Medicine 10/05/17 documented as of this encounter
--- OUTSIDE RECORDS SUMMARY | 2025-03-09 17:44 | XMS_ITS | Encounter Summary ---
Author Organization [facility] Address [address] [place] [address] Care Team Providers Care Plant Anatomist Name Role Phone Joleen Hernandez M.D. Primary Care Provider [phone] Reason for Visit * Reason Comments Med Refill Encounter Details Date Type Department Care Team (Late st Contact Info) Description 02/27/2025 Refill Department of Family Medicine, [facility], in [place], [place] [address] [place] [address] Joleen Hernandez M.D. [address] [place] [address] Med Refill Social History Tobacco Use Types Packs/Day Years Used Date Smoking Tobacco: Former Cigarettes 0 0 06/11/2014 - 06/11/2014 Passive Smoke Exposure: Current Smokeless Tobacco: Never Alcohol Use Standard Drinks/Week Comments No 0 (1 standard drink = 0.6 oz pur e alcohol) [facility] Utilities Answer Date Recorded In the past [...] your living situation today? I have a [facility] place to live 10/29/2023 Education Answer Date Recorded What is the highest level of school you have completed or the highest degree you have received? 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 - 03/02/2025 10:15 AM CDT Information Discussed Refill denied. Too long since last appointment. Needs to try to get an appointment sooner than [id number]. See if Dr. Fisher has been opening. Patient also could do the controlled substance urine screening at any time does not need to wait for the appointment. PLAN Disposition/Recommendation: recommended continue engagement in self-management activities Information/Education: patient/caller able to teach back Caller agreeable to plan of care: yes The following references were used: nursing clinical judgement * Telephone Encounter - Tammie Swanson L.P.N. - 03/02/2025 9:31 AM CDT R: Please review pended narcotic medication and update/approve/deny as applicable. S: Request from: [facility] B: Suboxone Sublingual Film 8-2 MG Last dispensed from [facility] pharmacy on 01/08/25 for a quantity of 15 and for a 5 day supply. Last date renewed by provider: 01/08/25 Due: now Last saw PCP on: last note stated an appointment is needed Next appt with PCP: 03/10/2025 Last physical on: due A: CSA Pain Contract signed: YES 09/21/23 Recent Urine Screen: YES 07/06/23 Pharmacy for Controlled Substances: NO PDMP reviewed, no suspicious activities observed. No alerts in system (Alerts COPY AND PASTED IFNECESSARY). Thank you, Tammie Swanson L.P.N. * Telephone Encounter - Karen Maddox - 03/01/2025 6:32 PM CDT Needs Review: Med Refill Team is unable to forward request to provider. Controlled Substance Primary Provider: Joleen Hernandez M.D. Requested Prescriptions Pending Prescriptions Disp Refills buprenorphine-naloxone (Suboxone) 8-2 mg per SL film [Pharmacy Med Name: Suboxone Sublingual Film 8-2 MG] 0 Sig: Place 0.5 Film under the tongue 3 times a day. Please schedule appointment. documented in this encounter Plan of Treatment Upcoming Encounters Date Type Department Care Team (Late st Contact Info) Description 03/16/2025 4:00 PM CDT Appointment Department of Radiology in [place], [place] [address] [address] Jana Bennett APRN C.N.PSowmya, D.N.P. [address] [address] Discharge Disposition: Home or Self Care 03/30/2025 3:30 PM CDT Appointment Department of Radiology in [place], [place] [address] [address] Jana Bennett APRN C.N.P., D.N.P. [address] [address] Discharge Disposition: Home or Self Care 09/04/2025 2:40 PM CDT Office Visit Department of Family Medicine, [facility], in [place], [place] [address] [address] Joleen Hernandez M.D. [address] [address] documented as of this encounter Visit Diagnoses Diagnosis Pain Low Back Unspecified documented in this encounter Additional Health Concerns Assessment Noted Time PHQ-9 Depression Total Score: 0 08/15/19 24 5:02 PM THERAPEUTIC SALES SPECIALIST documented as of this encounter Care Teams Plant Anatomist Relationship Specialty Start Date End Date Joleen Hernandez M.D. [address] [address] PCP - General Family Medicine 10/05/17 documented as of this encounter
--- OUTSIDE RECORDS SUMMARY | 2025-03-09 17:44 | XMS_ITS | Encounter Summary ---
Author Organization [facility] Address [address] [place] [address] Care Team Providers Care Retail Business Analyst Name Role Phone Joleen Hernandez M.D. Primary Care Provider [phone] [phone] Encounter Details Date Type Department Care Team (Latest Contact Info) Description 03/09/2025 Results Follow-Up Department of Family Medicine, [facility], in [place], [place] [address] [phone] Jana Bennett, CHRISTIANO, C.N.P., D.N.P. [address] [phone] Comprehensive Metabolic Panel, CBC with Differential, Blood Social History Tobacco Use Types Packs/Day Years Used Date Smoking Tobacco: Former Cigarettes 0 0 06/11/2014 - 06/11/2014 Passive Smoke Exposure: Past Smokeless Tobacco: Never Alcohol Use Standard Drinks/Week Comments No 0 (1 standard drink = 0.6 oz pur e alcohol) [facility] Utilities Answer Date Recorded In the past 12 months has e [employer], gas, oil, or water [employer] on the Drive threatened to shut off services in your [...] your living situation today? I have a [facility] place to live 10/29/2023 Education Answer Date Recorded What is the highest level of school you have completed or the highest degree you have received? 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 [address], [place] [address] Discharge Disposition: Home or Self Care 03/30/2025 3:30 PM CDT Appointment Department of Radiology in [place], [place] [address], [place] [address] Jana Bennett APRN, C.N.P., D.N.P. [address], [place] [address] Discharge Disposition: Home or Self Care 09/04/2025 2:40 PM CDT Office Visit Department of Family Medicine, [facility], in [place], [place] [address] [phone] Joleen Hernandez M.D. [address] [place] [address] documented as of this encounter Visit Diagnoses Not on filedocumented in this encounter Additional Health Concerns Assessment Noted Time PHQ-9 Depression Total Score: 0 08/15/19 24 5:02 PM MENTAL HEALTH UNIT LEAD PSYCHOLOGIST documented as of this encounter Care Teams Retail Business Analyst Relationship Specialty Start Date End Date Joleen Hernandez M.D. [address] [phone] PCP - General Family Medicine 10/05/17 documented as of this encounter
--- OUTSIDE RECORDS SUMMARY | 2025-03-09 17:44 | XMS_ITS | Encounter Summary ---
Author Organization [facility] Address [address] [place] [address] Care Team Providers Care Senior Linux Systems Engineer Name Role Phone Joleen Hernandez M.D. Primary Care Provider [phone] Reason for Visit * Reason Onset Date Comments Med Refill 03/06/2025 Encounter Details Date Type Department Care Team (Late st Contact Info) Description 03/06/2025 Refill Department of Family Medicine, [facility], in [place], [place] [address] [place] [phone] Joleen Hernandez M.D. [address], [place] [address] Med Refill Social History Tobacco Use Types Packs/Day Years Used Date Smoking Tobacco: Former Cigarettes 0 0 06/11/2014 - 06/11/2014 Passive Smoke Exposure: Past Smokeless Tobacco: Never Alcohol Use Standard Drinks/Week Comments No 0 (1 standard drink = 0.6 oz pur e alcohol) [facility] Utilities Answer Date Recorded In the past 12 months has e [employer], gas, oil, or water [employer] threatened to shut off services in your [...] your living situation today? I have a [facility] place to live 10/29/2023 Education Answer Date Recorded What is the highest level of school you have completed or the highest degree you have received? GED or equivalent Sex and Gender Information Value Date Recorded Sex Assigned at Male 12/03/2019 4:13 PM CDT Legal Sex Male 2:31 PM COORDINATOR MINING PRODUCTS Gender Identity Male 12/03/2019 4:13 PM CDT Sexual Orientation Straight 12/03/2019 4: 13 PM CDT documented as of this encounter Miscellaneous Notes * Telephone Encounter - Jennifer Tamayo, R.N. - 03/09/2025 9:51 AM CDT Contacted and informed patient that per Jana Bennett CNP he does not need to see provider again but will need to complete the urine drug screen prior to prescription for Suboxone. Patient transferred to desk for scheduling. * Telephone Encounter - Carmina Reid R.N. - 03/06/2025 4:44 PM CDT SUBJECTIVE CHIEF COMPLAINT / REASON FOR CALL Med Refill Information Discussed Patient contacted and informed that he needs to complete a urine drug screen before we can refill the Suboxone prescription. The patient reports that he went down to lab after his appointment today and they did not give him a urine cup to complete the testing. The patient expressed frustration about this confusion on the lab end and the bouncing around he has had with providers. The patient reports this is extremely unethical of [facility] to not refill this medication. The patient reports that he was told Suboxone was a non-addictive medication, but that it has been the most addictive medication he has been on to manage his pain. The patient reports he has severe withdrawal symptoms when he stops taking it. The patient would like to know how to safely get off the Suboxone. PLAN Disposition/Recommendation: notified provider and awaiting recommendations Information/Education: patient/caller able to teach back Caller agreeable to plan of care: yes The following references were used: nursing clinical judgement and provider Jana Bennett documented in this encounter Plan of Treatment Upcoming Encounters Date Type Department Care Team (Late st Contact Info) Description 03/16/2025 4:00 PM CDT Appointment Department of Radiology in [place], [place] [address] [place] [address] Jana Bennett APRN, C.N.P., D.N.P. [address] [place] [address] Discharge Disposition: Home or Self Care 03/30/2025 3:30 PM CDT Appointment Department of Radiology in [place], [place] [address] [place] [address] Jana Bennett APRN, C.N.P., MiriamNSowmyaP. [address] [phone] Discharge Disposition: Home or Self Care 09/04/2025 2:40 PM CDT Office Visit Department of Family Medicine, [facility], in [place], [place] [address] [phone] Joleen Hernandez M.D. [address] [phone] documented as of this encounter Visit Diagnoses Diagnosis Pain Low Back Unspecified documented in this encounter Additional Health Concerns Assessment Noted Time PHQ-9 Depression Total Score: 0 08/15/19 24 5:02 PM COORDINATOR MINING PRODUCTS documented as of this encounter Care Teams Senior Linux Systems Engineer Relationship Specialty Start Date End Date Joleen Hernandez M.D. [address] [phone] PCP - General Family Medicine 10/05/17 documented as of this encounter
--- OUTSIDE RECORDS SUMMARY | 2025-03-09 17:44 | XMS_ITS | Encounter Summary ---
Author Organization [facility] Address [address] [place] [address] Care Team Providers Care Pharmacy Specialist Name Role Phone Joleen Hernandez M.D. Primary Care Provider [phone] Encounter Details Date Type Department Care Team (Late st Contact Info) Description 02/11/2025 Orders Only [facility] Joleen Hernandez M.D. [address] [place] [address] Hyperlipidemia Social History Tobacco Use Types Packs/Day Years Used Date Smoking Tobacco: Former Cigarettes 0 0 06/11/2014 - 06/11/2014 Passive Smoke Exposure: Current Smokeless Tobacco: Never Alcohol Use Standard Drinks/Week Comments No 0 (1 standard drink = 0.6 oz pur e alcohol) [facility] Utilities Answer Date Recorded In the past 12 months has e [employer], gas, oil, or water [employer] threatened to shut off services in your [...] your living situation today? I have a [facility] place to live 10/29/2023 Education Answer Date Recorded What is the highest level of school you have completed or the highest degree you have received? 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 [address] [place] [address] Discharge Disposition: Home or Self Care 03/30/2025 3:30 PM CDT Appointment Department of Radiology in [place], [place] [address] [phone] Jana Bennett, CHRISTIANO, C.N.P., D.N.P. [address] [phone] Discharge Disposition: Home or Self Care 09/04/2025 2:40 PM CDT Office Visit Department of Family Medicine, [facility], in [place], [place] [address] [phone] Joleen Hernandez M.D. [address] [phone] Scheduled Orders Name Type Priority Associated Diagnoses Orde r Schedule Lipid Panel Lab Routine Hyperlipidemia Expected: 02/25/2025, Expires: 07/31/2025 documented as of this encounter Visit Diagnoses Diagnosis Hyperlipidemia documented in this encounter Additional Health Concerns Assessment Noted Time PHQ-9 Depression Total Score: 0 08/15/19 24 5:02 PM ARCHITECTURAL DRAFTSMAN documented as of this encounter Care Teams Pharmacy Specialist Relationship Specialty Start Date End Date Joleen Hernandez M.D. [address] [phone] PCP - General Family Medicine 10/05/17 documented as of this encounter
--- OUTSIDE RECORDS SUMMARY | 2025-03-09 17:44 | XMS_ITS | Clinical Summary ---
Author Organization [facility] Address [address] [place] [address] Care Team Providers Care Superintendent Gas Distribution Name Role Phone Joleen Hernandez M.D. Primary Care Provider [phone] [phone] Source Comments Patient records contain information from all sites at [facility]. For routine questions regarding patient records, call [phone] during business hours, M-F 8:00 AM - 5:00 PM Central Time. Record requests for emergency care only can be directed to [phone] at any time.[facility] Allergies No known active allergies Medications * This document contains information received from the source organization and may not represent a complete record from that organization. naproxen (EC-NAPROSYN) 500 mg EC tabletIndicatio ns:Radiculopath y Lumbar,Pain Low Back Mechanical Take 1 tablet (500 mg total) by mouth 2 (two) times a day with meals. 60 tablet 1 024 Active albuterol (Ventolin HFA) 90 mcg/actuation inhalerIndicati ons:Asthma Moderate Persistent With Acute Exacerbation With History Of Tobacco Use (HCC),Gastroeso phageal Reflux Disease Without Esophagitis Inhale 2 puffs every 4 (four) hours as needed for wheezing or shortness of breath. 18 g 2 024 Active gabapentin (Neurontin) 800 mg tabletIndicatio ns:Radiculopath [...] and dinner. 90 tablet 3 025 Active buprenorphine-n aloxone (Suboxone) 8-2 mg per SL filmIndications :Pain Low Back Unspecified Place 0.5 Film (4 mg of buprenorphine total) under the tongue 3 (three) times a day. Please schedule appointment. 15 each 025 Active QUEtiapine XR (SEROqueL XR) 400 mg 24 hr tablet Take 1 tablet (400 mg total) by mouth at bedtime. Last refill until appointment made 60 tablet 025 Active losartan (Cozaar) 50 mg tabletIndicatio ns:Hypertension Essential Primary Take 1 tablet (50 mg total) by mouth daily. 90 tablet 3 025 Active atorvastatin (Lipitor) 20 mg tablet Take 1 tablet (20 mg total) by mouth daily. 90 tablet 3 025 2025 Active fluticasone propionate (Flovent HFA) 44 mcg/actuation inhalerIndicati ons:Asthma Moderate Persistent With Acute Exacerbation With History Of Tobacco Use (HCC) Inhale 2 puffs 2 (two) times a day. Rinse mouth with water after use to reduce aftertaste and incidence of candidiasis. Do not swallow. 10.6 g 11 025 Active cyclobenzaprine (FLEXERIL) 10 mg tablet Take 1 tablet (10 mg total) by mouth 3 (three) times a day as needed for muscle spasms for up to 5 days. 15 tablet 022 2021 Discontinued(S galilea effects) fluticasone propionate (FLOVENT HFA) 44 mcg/actuation inhalerIndicati ons:Asthma Moderate Persistent With Acute Exacerbation With History Of Tobacco Use (HCC),Gastroeso phageal Reflux Disease Without Esophagitis Inhale 2 puffs 2 (two) times a day. Rinse mouth with water after use to reduce aftertaste and incidence of candidiasis. Do not swallow. 10.6 g 11 023 2024 Discontinued(R eorder) QUEtiapine (SEROquel) 200 mg tabletIndicatio ns:Anxiety Generalized Disorder Take 1 tablet (200 mg total) by mouth 2 (two) times a day. 60 tablet 2 024 2024 Discontinued atorvastatin (LIPITOR) 20 mg tablet Take 1 tablet (20 mg total) by mouth daily. 90 tablet 3 024 2024 Discontinued(R eorder) losartan (Cozaar) 50 mg tabletIndicatio ns:Hypertension Essential Primary take one tablet by mouth one time daily 90 tablet 3 024 2024 Discontinued(R eorder) Active Problems Problem Noted Date Diagnosed Date Medication Management Issue 03/08/2025 Assessment & Plan (03/08/2025 5:58 PM CDT): Reports concern for withdrawal symptoms including diaphoresis, insomnia, restless legs, and severe discomfort. Unaware of withdrawal potential, leading to anxiety about symptom severity and impact on function. - PDMP reviewed - Informed patient I [...] Ackerman APRN, C.N.P. 03/08/25 5:58 PM CDT Hyperlipidemia 11/01/2023 Asthma Moderate Persistent W ith Acute Exacerbation With History Of Tobacco Use 09/21/2023 Assessment & Plan (03/09/2025 9:57 AM CDT): Doing well with no concerns at this time. Refilled his Flovent inhaler to do 2 puffs twice a day. Orders: fluticasone propionate (Flovent HFA) 44 mcg/actuation inhaler; Inhale 2 puffs 2 (two) times a day. Rinse mouth with water after use to reduce aftertaste and incidence of candidiasis. Do not swallow. Adjustment Disorder Mixed Reaction 12/02/2019 Radiculopathy Lumbar 10/16/2018 Assessment & Plan (03/09/2025 9:57 AM CDT): Chronic severe lower back pain due to [...] and any nerve impingement. - Refer to talent acquisition specialist for evaluation and management of back pain. - Initiate physical therapy referral to [facility] for back and shoulder rehabilitation. Order placed at today's visit. - For pain management he has been doing Suboxone - needs to update controlled substance monitoring panel at today's visit for refills. Orders: MR Lumbar Spine without IV Contrast; Future Family Medicine office visit (clinic); Future Pain Low Back Unspecified 04/25/2018 Assessment & Plan (03/09/2025 9:57 AM CDT): Chronic severe lower back pain due to [...] and any nerve impingement. - Refer to talent acquisition specialist for evaluation and management of back pain. - Initiate physical therapy referral to [facility] for back and shoulder rehabilitation. Order placed at today's visit. - For pain management he has been doing Suboxone - needs to update controlled substance monitoring panel at today's visit for refills. 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 Pain Low Back Unspecified 03/09/2025 Results Follow-Up Department of Family Medicine, [facility], in [place], [place] [address] [place] [address] Jana Bennett APRN C.N.P., D.N.P. Comprehensive Metabolic Panel, CBC with Differential, Blood 03/06/2025 12:05 PM CDT - 03/06/2025 11:59 PM CDT Hospital Encounter Department of Laboratory Medicine in [address] [phone] Jana Bennett APRN C.N.P., D.N.P. Hypertension Essential Primary; Pain Teeth Discharge Disposition: Home or Self Care 03/06/2025 11:00 AM CDT Office Visit Department of Family Medicine, [facility], in [address] [phone] Jana Bennett APRN C.N.P., D.N.P. Pain Low Back Unspecified (Primary Dx); Radiculopathy Lumbar; Pain Shoulder Left; Pain Shoulder Right; Hypertension Essential Primary; Asthma Moderate Persistent With Acute Exacerbation With History Of Tobacco Use (HCC); Pain Teeth; Cerumen Impacted Bilateral; Sleep Apnea Unspecified 03/06/2025 Refill Department of Family Medicine, [facility], in [address] [phone] Joleen Hernandez M.D. Med Refill 03/06/2025 Refill Department of Family Medicine, [facility], in [address] [address] Joleen Hernandez M.D. Med Refill 03/03/2025 4:00 PM CDT Office Visit Department of Internal Medicine in [address] [phone] Radha Ackerman APRN, C.N.P. Medication Management Issue (Primary Dx) 02/27/2025 Refill Department of [facility] Medicine, [facility], in [address] [address] Joleen Hernandez M.D. Med Refill 02/24/2025 Clinical Communication Department of [facility], [facility], in [address] [address] Joleen Hernandez M.D. Med Question 02/11/2025 Orders Only [facility] Joleen Hernandez M.D. Hyperlipidemia from Last 3 Months Immunizations Immunization Administration Dates Next Due DTP 07/14/1993, 2,04/24/1991,1990,1988 Hib (PRP-T) (ACTHIB, HIBERIX) 04/24/1991 MMR 12/19/1990 OPV, Trivalent 07/14/1993, 1,12/19/1990,1988 Td (Adult), adsorbed 11/11/2011 Tdap [...] drink = 0.6 oz pur e alcohol) [facility] Utilities Answer Date Recorded In the past 12 months has th e electric, gas, oil, or water company [...] your living situation today? I have a [facility] place to live 10/29/2023 Education Answer Date Recorded What is the highest level of school you have completed or the highest degree you have received? 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 Gender Identity Male 12/03/2019 4:13 PM CDT Sexual Orientation Straight 12/03/2019 4: 13 PM CDT Last Filed Vital Signs Vital Sign Reading Time Taken Comments Blood Pressure 130/75 03/06/2025 11:02 AM CDT Pulse 76 03/06/2025 11:02 AM CDT Temperature 36.8 C (98.2 F) 03/06/2025 10:56 AM CDT Respiratory Rate 20 08/23/2023 7:30 PM CDT Oxygen Saturation 96% 08/23/2023 7:3 5 PM CDT Inhaled Oxygen Concentration - - Weight 94.7 kg (208 lb 12.4 oz) 03/06/2025 10:56 AM CDT wearing steel toes work boots Height 180 cm (5' 10.87) 03/06/2025 10 :56 AM CDT wearing steel toes work boots Body Mass Index 29.23 03/06/2025 10:56 AM CDT Plan of Treatment Upcoming Encounters Date Type Department Care Team (Late st Contact Info) Description 03/16/2025 4:00 PM CDT Appointment Department of Radiology in [place], [place] [address] [phone] Jana Bennett APRN, C.N.P., D.N.P. [address] [phone] Discharge Disposition: Home or Self Care 03/30/2025 3:30 PM CDT Appointment Department of Radiology in [place], [place] [address] [phone] Jana Bennett APRN C.N.P., D.N.P. [address] [address] Discharge Disposition: Home or Self Care 09/04/2025 2:40 PM CDT Office Visit Department of Family Medicine, [facility], in [place], [place] [address] [phone] Joleen Hernandez M.D. [address] [place] [address] Health Maintenance Due Date Last Done Comments Hepatitis C Screening 1988 Hepatitis B Vaccines (1 of 3 - 19+ 3-dose series) 2007 Pneumococcal vaccine (0-49 y ears) (1 of 2 - PCV) 2007 HPV Vaccines (1 - 3-dose SCD M series) 2015 Asthma Action Plan 09/21/2023 COVID-19 Vaccine (1 - 2023-2 5 season) 2025 Influenza Vaccine (#1) 2025 04/25/2018, 2017 Asthma Control Test Questionnaire 03/06/2026 025 Asthma Management/Exacerbati on Questionnaire (AMQ/AEQ) 03/06/2026 03/06/2025 Creatinine Level (Kidney Fun ction Test) 03/06/2026 03/06/2025, 10/22/2023, 10/07/2022, Additional history exists Glucose Test for Med Monitoring 03/06/2026 03/06/2025, 10/22/2023, 10/07/2022, Additional history exists Potassium Level 03/06/2026 03/06/2025, 10/09, 10/07/2022, Additional history exists Sodium Level 03/06/2026 03/06/2025, 10/09, 10/07/2022, Additional history exists Lipid (Cholesterol) Screening 10/21/2028 10/22/2023 DTaP,Tdap,and Td Vaccines (8 - Td or Tdap) 11/20/2032 11/20/2022, 10/06/2014, 11/11/2011, Additional history exists IPV Vaccines Completed 07/14/1993, 04/11, 12/19/1990, Additional history exists HIV Screening Completed 12/09/2018 Depression Screening (Annual PHQ-2) Completed 03/06/2025 Procedures Procedure Name Priority Date/Time Associated Diagnosis Comments CBC WITH DIFFERENTIAL, B Routine 03/06/2025 12:11 PM CDT Pain Teeth COMPREHENSIVE METABOLIC PANEL, S/P Routine 03/06/2025 12:11 PM CDT Hypertension Essential Primary LIPID PANEL, S Routine 10/22/2023 9:50 AM CDT Screening Lipid from Last 3 Months or Most Recently Relevant to Health Maintenance Results * (ABNORMAL) CBC with Differential, Blood (03/06/2025 12:11 PM CDT) [facility] Hemoglobin 15.3 13.2 - 16.6 g/dL 03/06/2025 [...] PM CDT 03/06/2025 12:21 PM CDT Jana Audelia Bennett APRN, C.N.P., D.N.P. LAB BLOO D ADD-ON Final Result [facility] [address] [place] [address], [facility] [place] [facility] [place] [address] [place] [address] * (ABNORMAL) Comprehensive Metabolic Panel (03/06/2025 12:11 [...] ADD-ON Final Result [facility] [address] [place] [address], [facility] [place] [address] [place] [address] * (ABNORMAL) Lipid Panel (10/22/2023 9:50 AM CDT) Triglycerides 217(H) mg/dL 10/22/2023 1:54 PM CDT [...] for FH and FDB is available through [facility]. ----REFERENCE VALUE---- Desirable: <100 mg/dL Above Desirable: 100-129 mg/dL Borderline High: 130-159 mg/dL High: 160-189 mg/dL Very High: >=190 mg/dL ----ADDITIONAL INFORMATION---- LDL cholesterol calculated using the Obrien/NIH equation. Cholesterol, HDL 27(L) >=40 mg/dL 10/22/19 24 1:54 PM CDT [facility] Cholesterol, Non-HDL, Calculated [...] M.D. LAB BLOOD ADD-ON Final Re sult [facility] [address] [place] [id number], [facility] [place] [address], [place] [address] from Last 3 Months or Most Recently Relevant to Health Maintenance Insurance MEDICAID Care Teams Superintendent Gas Distribution Relationship Specialty Start Date End Date Joleen Hernandez M.D. [address] [place] [phone] PCP - General Family Medicine 10/05/17
[2025-03-09 17:52] VITALS: BP 142/92; PULSE 90; RESP 16; TEMP 36.8; O2SAT 99; BMI 28.8
--- NOTE | 2025-03-09 18:41 | ED.GENADULT ---
HPI - General Adult General Time Seen by Provider: 18:42 Date Seen: 03/09/25 Chief complaint: Unspecified Complaint, Adult Stated complaint: possible infection in mouth or face Time Seen by Provider: 03/09/25 17:55 Source: patient and RN notes reviewed Mode of arrival: ambulatory Limitations: no limitations History of Present Illness HPI narrative: This 34-year-old male is coming in with pain in his face, burning pain developing in his scalp and forehead. It is in his right face. He had a recent dental infection, was treated with antibiotics, does not remember where in his mouth it was. He is not sure if it has anything to do with his current symptoms. He felt a swollen lymph node on that side of his neck, has a little red spot on his right eyelid that seems to be expanding today. He notes no eye symptoms such as visual changes or pain in the eye. Said no fevers or chills. He did have pain in this side of his face and head before he noticed this red spot. Related Data Home Medications ?Medication ?Instructions ?Recorded ?Confirmed gabapentin 800 mg tablet 3,600 mg PO 09/05/23 09/05/23 quetiapine 100 mg tablet 100 mg PO QPM 09/05/23 03/09/25 buprenorphine 8 mg-naloxone 2 mg 1 film sublingual DAILY 11/28/24 03/09/25 sublingual film atorvastatin 20 mg tablet 20 mg PO DAILY 03/09/25 03/09/25 pantoprazole 40 mg tablet,delayed 40 mg PO 03/09/25 release Previous Rx's ?Medication ?Instructions ?Recorded buprenorphine 8 mg-naloxone 2 mg 0.5 film buccal BID-TID #3 ea 03/09/25 sublingual film (Suboxone) valacyclovir 1 gram tablet 1,000 mg PO TID #20 tabs 03/09/25 Allergies Allergy/AdvReac Type Severity Reaction Status Date / Time No Known Drug Allergies Allergy Verified 03/09/25 17:51 Review of Systems Narrative: As per HPI. PFS PFS Social History Smoking Status: Never smoker Second hand tobacco smoke exposure: No How often do you have a drink containing alcohol: never AUDIT-C Alcohol total score: 0 Non-prescribed substance use: denies use Exam Const: Vital Signs, click to edit/add: Vital Signs - 24 hr 03/09/25 17:52 Temperature 98.3 F Pulse Rate [Pulse Oximeter] 90 Respiratory Rate 16 Blood Pressure [Ri ght Upper Arm] 142/92 H Pulse Oximetry 99 Oxygen Delivery Me thod Room Air This 34-year-old male is alert, interactive, no apparent stress. He notably has a right upper eyelid erythematous lesion that is raise, do not appreciate any definite vesicles at this time. He states his skin feels funny when I touch his forehead on the right side, does not feel the same on the left side. He has symmetrical facial function. Pupils are equal round reactive, sclerae clear, extraocular muscles intact. I do not feel any lymphadenopathy at this time in his neck, no masses. Lungs are clear, good air entry, no wheeze or crackles. CV regular rate and rhythm, no murmur. Documenting provider has reviewed patient's vital signs: yes Course Course ED Course: Reviewed with patient and his significant other that is with him that I am certain that this is shingles. We discussed the complications of up some logic involvement, he will need to see an belt knife feeder tomorrow or the day after. Right now he has no orbital symptoms outside of the eyelid but he does understand that it can involve the eye and affect vision. We will give him a dose of Valtrex 1000 mg here tonight, we do not have any in [facility]. He is on Suboxone for pain, has a follow-up on Sunday, he did ask if I could give him 3 films to get through, I can send this to the pharmacy for him. We also discussed using Tylenol and ibuprofen. Vital Signs Vital signs: Initial Vital Signs Temperature 98.3 F 03/09/25 17:52 Temperature Source Temporal Artery Scan 03/09/25 17:52 Pulse Rate 90 03/09/25 17:52 Respiratory Rate 16 03/09/25 17:52 Blood Pressure 142/92 H 03/09/25 17:52 Blood Pressure Mean 108 H 03/09/25 17:52 Pulse Oximetry 99 03/09/25 17:52 Oxygen Delivery Method Room Air 03/09/25 17:52 Vital Signs Temperature 98.3 F 03/09/25 17:52 Pulse Rate 90 03/09/25 17:52 Respiratory Rate 16 03/09/25 17:52 Blood Pressure 142/92 H 03/09/25 17:52 Pulse Oximetry 99 03/09/25 17:52 Oxygen Delivery Method Room Air 03/09/25 17:52 Temperature 98.3 F 03/09/25 17:52 Pulse Rate 90 03/09/25 17:52 Respiratory Rate 16 03/09/25 17:52 Blood Pressure 142/92 H 03/09/25 17:52 Pulse Oximetry 99 03/09/25 17:52 Oxygen Delivery Method Room Air 03/09/25 17:52 Discharge Plan Discharge Clinical Impression: Shingles Patient Disposition: Home, Self-Care Condition: Stable Instructions: Shingles (ED) Additional Instructions: Need to take Valtrex 1000 mg 3 times a day, you dose was given for tonight. Next dose due tomorrow morning, very important to complete this medication to help decrease further rash development, help decrease development of chronic pain syndromes with shingles. It is imperative that you contact your belt knife feeder tomorrow, they really need to look at your eye, let them know you have shingles involving the eyelid. I have given you a days worth of Suboxone to get you through for your pain management. Recommend Tylenol 1000 mg 3 times a day for additional pain control, can also use ibuprofen per bottle directions for further pain management with the shingles. Activity Level: Activity as Tolerated Prescriptions: New buprenorphine-naloxone [Suboxone] 8-2 mg film 0.5 film buccal BID-TID Qty: 3 0RF valacyclovir 1 gram tablet 1,000 mg PO TID Qty: 20 0RF No Action gabapentin 800 mg tablet 3,600 mg PO quetiapine 100 mg tablet 100 mg PO QPM buprenorphine-naloxone 8-2 mg film 1 film sublingual DAILY atorvastatin 20 mg tablet 20 mg PO DAILY pantoprazole 40 mg tablet,delayed release (DR/EC) 40 mg PO Follow Up/Referrals: Joleen Hernandez MD [Primary Care Provider, Family Practice] Stand Alone Forms: [facility] Info Instructions
[2025-03-09] MEDS: VALACYCLOVIR HCL 500 MG TABLET 1000 MG PO (19:51)
== END 2025-03-09 19:54 | disposition home or self-care (01) ==
LOC: ED 19:04
PROVIDERS: Emergency Provider Family Medicine
DX: B02.9 Zoster without complications (principal)
CPT/HCPCS: 99283; A9270